=== PATIENT | male | born 1945 | race Hispanic/Latino ===

== ENCOUNTER 2019-01-18 11:38 | Inpatient (IN) | payer MEDICARE ==
[2019-01-18] MEDS ORDERED: CARDIZEM IV ONE ×2 (11:40→11:57)
--- NOTE | 2019-01-18 11:56 | Emergency Department Report ---
HPI - General Time Seen by Provider: 01/18/19 11:40 - HPI HPI: 73-year-old male presents to the emergency department via EMS from home with complaint of chest pain that started about 1.5 hours prior to presentation. The patient took a few of his own sublingual nitroglycerin with only a small amount of relief. EMS gave him a dose of aspirin at 325 mg. He was found to have a heart rate of about 160-180. EMS thought that the patient might have SVT and the patient was given adenosine at 6 g and then 12 mg, without any improvement of heart rate. By the time the patient was sent to the emergency department his chest pain has improved. Upon arrival, he does have a very fast heart rate but appears irregular and the patient appears to have new onset atrial fibrillation. He has a past medical history of coronary artery disease with previous IL and multiple stents as well as his bypass surgery. He is on Plavix. 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 He is a former smoker and denies any illicit drug use. ED Past Medical Hx - Past Medical History Hx Hypertension: Yes (FOR 12 YRS) Hx Heart Attack/AMI: Yes (02/2015) Hx Renal Disease: No Hx Seizures: No Hx HIV: No - Surgical History Hx Coronary Stent: Yes (X3 IN 2003, X2 IN 2006 & X2 IN 2014) Hx Open Heart Surgery: Yes (CABG ONE VESSEL 02/2015) - Social History Smoking Status: Former Smoker Substance Use Type: Alcohol - Medications Home Medications: Home Medications Medication Instructions Recorded Confirmed Last Taken Type Niacin [Niaspan] 500 mg PO DAILY 05/05/15 01/18/19 05/17/17 History Atenolol [Tenormin] 50 mg PO BID 01/18/19 01/18/19 Unknown History Atorvastatin [Lipitor Tab] 80 mg PO DAILY 01/18/19 01/18/19 Unknown History Cholecalciferol (Vitamin D3) 3,000 unit PO DAILY 01/18/19 01/18/19 Unknown History [Vitamin D3 3,000 unit] Clopidogrel Bisulfate [Plavix] 75 mg PO DAILY 01/18/19 01/18/19 Unknown History Duloxetine HCl [DULoxetine] 60 mg PO QDAY 01/18/19 01/18/19 Unknown History Ezetimibe [Zetia] 5 mg PO QDAY 01/18/19 01/18/19 Unknown History Loratadine [Claritin] 10 mg PO DAILY 01/18/19 01/18/19 Unknown History Losartan [Cozaar] 100 mg PO QDAY 01/18/19 01/18/19 Unknown History Tadalafil [Cialis] 5 mg PO QDAY 01/18/19 01/18/19 Unknown History hydroCHLOROthiazide [HCTZ] 25 mg PO QDAY 01/18/19 01/18/19 Unknown History ED Review of Systems ROS: Stated complaint: CHEST PAIN Other details as noted in HPI Comment: All other systems reviewed and negative Constitutional: denies: chills, fever Eyes: denies: eye pain, vision change ENT: denies: ear pain, throat pain Respiratory: denies: cough, shortness of breath Cardiovascular: chest pain, palpitations Gastrointestinal: denies: abdominal pain, vomiting Genitourinary: denies: dysuria, discharge Musculoskeletal: denies: back pain, arthralgia Skin: denies: rash, lesions Neurological: denies: headache, weakness Physical Exam - Physical Exam Vital Signs: Vital Signs 01/18/19 11:43 Pulse Rate 159 H Respiratory 18 Rate Blood Pressure 110/45 O2 Sat by Pulse 96 Oximetry Physical Exam: GENERAL: The patient is well-developed well-nourished. HEENT: Normocephalic. Atraumatic. Patient has moist mucous membranes. EYES: Extraocular motions are intact. Pupils are equal and reactive to light bilaterally. NECK: Supple. Trachea is midline. CHEST/LUNGS: Clear to auscultation. There is no respiratory distress noted. HEART/CARDIOVASCULAR: Irregular rhythm with severe tachycardia. ABDOMEN: Abdomen is soft, nontender. Patient has normal bowel sounds. There is no abdominal distention. SKIN: Skin is warm and dry. NEURO: The patient is awake, alert, and oriented. The patient is cooperative. The patient has no focal neurologic deficits. The patient has normal speech. MUSCULOSKELETAL: There is no tenderness or deformity. There is no evidence of acute injury. ED Course Vital Signs 01/18/19 11:43 Pulse Rate 159 H Respiratory 18 Rate Blood Pressure 110/45 O2 Sat by Pulse 96 Oximetry ED Medical Decision Making - Lab Data Result diagrams: 01/18/19 12:01 01/18/19 12:01 - EKG Data -: EKG Interpreted by Me - EKG Data When compared to previous EKG there are: changes noted (Previous EKG on 05/2017 was sinus arrythmia) Interpretation: other (atrial fibrillation with rate of 136 bpm, left axis deviation, LVH, Q waves inferior leads) - Radiology Data Radiology results: image reviewed interpreted by me: Chest x-ray does not show any pneumothorax, pleural effusion, pneumonia or obvious focal consolidation. - Medical Decision Making this patient presents to the emergency department with complaint of chest pain and he was found to have a very rapid heart rate. EMS thought the patient might be an SVT but he failed to have any improvement or convert with 6 mg and then 12 mg of adenosine. When he arrived to the emergency department, his pulse appeared and felt irregular. I had suspicion that this was atrial fibrillation. He was given 20 mg of Cardizem which did have some improvement in the heart rate in the EKG was done that confirmed new onset atrial fibrillation. After that, patient was given another dose of Cardizem and started on a Cardizem drip. Chest x-ray did not show any focal consolidation, pneumothorax, pleural effusions, pneumonia, or any other acute process. The patient bumped his first troponin at 0.133. This may have been demand ischemia secondary to the extreme tachycardia but his second troponin is also elevated. The patient was started on heparin. He will be admitted to the hospital for further evaluation and treatment and was accepted for admission by the hospitalist. - Differential Diagnosis IL, PE, dysrhythmia, pneumonia Critical Care Time: Yes Critical care time in (mins) excluding proc time.: 35 Critical care attestation.: If time is entered above; I have spent that time in minutes in the direct care of this critically ill patient, excluding procedure time. Critical care time was spent on this patient during his initial evaluation, multiple re- evaluations, ordering and interpretation of labs and imaging, discussion with the cardiology service, ordering and titration of Cardizem and heparin. Critical Care Time: 35 minutes ED Disposition Clinical Impression: New onset atrial fibrillation, Atrial fibrillation with RVR, Elevated troponin, Chest pain Disposition: OP ADMIT IP TO THIS HOSP Is pt being admited?: Yes Condition: Serious Time of Disposition: 18:49
[2019-01-18] MEDS ORDERED: NACL 0.9% 1000 ML 1,000 ML IV ONE (11:57)
--- NOTE | 2019-01-18 12:11 | XRay Report ---
AP CHEST: HISTORY: chest pain AP view of the chest demonstrates a normal mediastinal and cardiac contour with clear lungs and normal bony and soft tissue structures. IMPRESSION: No acute cardiopulmonary process.
[2019-01-18 12:19] LABS: Basophils # (Auto) 0.1 K/mm3 (0.0-0.1); Basophils % (Auto) 0.8 % (0.0-1.8); Eosinophils # (Auto) 0.1 K/mm3 (0.0-0.4); Eosinophils % (Auto) 0.7 % (0.0-4.3); Hemoglobin 13.6 gm/dl (11.8-15.2); Lymphocytes # (Auto) 1.4 K/mm3 (1.2-5.4); Lymphocytes % (Auto) 11.5 % (13.4-35.0); Mean Corpuscular HGB Conc 34 % (32-34); Mean Corpuscular Volume 95 fl (84-94); Monocytes # (Auto) 1.8 K/mm3 (0.0-0.8); Monocytes % (Auto) 14.7 % (0.0-7.3); Platelet Count 270 K/mm3 (140-440); Red Blood Count 4.21 M/mm3 (3.65-5.03); Red Cell Distribution Width 14.7 % (13.2-15.2)
[2019-01-18 12:27] LABS: INR 0.89 (0.87-1.13); Partial Thromboplastin Time 23.7 Sec. (24.2-36.6)
[2019-01-18] MEDS ORDERED: CARDIZEM/D5W 100MG/100ML 100 MG/100 ML BAG IV SCH (12:30)
[2019-01-18 12:42] LABS: Calcium 9.5 mg/dL (8.4-10.2)
[2019-01-18] MEDS ORDERED: HEPARIN 10,000 UNITS/10 ML IV ONE (12:48)
[2019-01-18] MEDS ORDERED: HEPARIN/ 0.45% NACL-25,000 UNIT/500 ML 25,000 UNIT/500 ML BAG IV SCH (13:00)
[2019-01-18] MEDS ORDERED: CARDIZEM 100 MG in D5W 80 ML IV SCH (13:00)
[2019-01-18 13:07] LABS: Chol/HDL Ratio 2.38 %
--- NOTE | 2019-01-18 13:10 | History and Physical Report ---
History of Present Illness Chief complaint: My chest hurts History of present illness: 73 YO Male with HTN, HI, CAD S/P Stent Placement, S/P CABG on DAPT, HLD, Carotid Stenosis S/P CEA, presents to ED for evaluation. Pt states that he has experienced pain in his chest over the past 12 hours with acutely worsening symp toms over the past 1.5 hours prior to presentation to [facility]. Pt states that pain is 7/10, constant, nonradiating, not worsened with exertion, not relieved with rest, relieved with nitro. Pt acknowledges decreased exercise tolerance, and shortness of breath, and palpitations. EMS notified, and uopn arrival the patient was thought to have SVT and treated with Adenosine without improvement. Pt seen and evaluated in ED and found to have Atrial Fib/Flutter and treated with Cardizem with mild but unsustained improvement in heart rate, as well as NSTEMI and clinical findings consistent with CHF. Pt switched to Amiodarone drip with bolus dosing as per cardiology request. Pt denies fever, chills, NVD, Trauma, BRBPR, Unintentional weight loss, night sweats, skin rash. Pt Admitted to [facility]. Cardiology consulted in ED. Past History Past Medical History: acute HI, CAD, hypertension, hyperlipidemia, other (Carotid Stenosis) Past Surgical History: CABG, Other (Cardiac stent placement. ) Social history: , lives with family Family history: CAD, hypertension Medications and Allergies Allergies Allergy/AdvReac Type Severity Reaction Status Date / Time No Known Allergies Allergy Verified 05/05/15 13:06 Home Medications Medication Instructions Recorded Confirmed Last Taken Type Niacin [Niaspan] 500 mg PO DAILY 05/05/15 01/18/19 05/17/17 History Atenolol [Tenormin] 50 mg PO BID 01/18/19 01/18/19 Unknown History Atorvastatin [Lipitor Tab] 80 mg PO DAILY 01/18/19 01/18/19 Unknown History Cholecalciferol (Vitamin D3) 3,000 unit PO DAILY 01/18/19 01/18/19 Unknown History [Vitamin D3 3,000 unit] Clopidogrel Bisulfate [Plavix] 75 mg PO DAILY 01/18/19 01/18/19 Unknown History Duloxetine HCl [DULoxetine] 60 mg PO QDAY 01/18/19 01/18/19 Unknown History Ezetimibe [Zetia] 5 mg PO QDAY 01/18/19 01/18/19 Unknown History Loratadine [Claritin] 10 mg PO DAILY 01/18/19 01/18/19 Unknown History Losartan [Cozaar] 100 mg PO QDAY 01/18/19 01/18/19 Unknown History Tadalafil [Cialis] 5 mg PO QDAY 01/18/19 01/18/19 Unknown History hydroCHLOROthiazide [HCTZ] 25 mg PO QDAY 01/18/19 01/18/19 Unknown History Active Meds: Active Medications Sodium Chloride (Nacl 0.9% 1000 Ml) 1,000 mls @ 250 mls/hr IV ONCE ONE Stop: 01/18/19 15:56 Last Admin: 01/18/19 12:06 Dose: 250 mls/hr Documented by: Diltiazem HCl 100 mg/ Dextrose 100 mls @ 5 mls/hr IV TITR NINA; Protocol Heparin Sodium/Sodium Chloride (Heparin/ 0.45% Nacl-25,000 Unit/500 Ml) 25,000 unit in 500 mls @ 24 mls/hr IV TITR NINA; Protocol Review of Systems Constitutional: no weight loss, no weight gain, no fever, no chills Ears, nose, mouth and throat: no ear pain, no ear discharge, no tinnitis, no decreased hearing, no nose pain Cardiovascular: chest pain, shortness of breath, dyspnea on exertion, decreased exercise tolerance Respiratory: no cough, no cough with sputum, no excessive sputum, no hemoptysis Gastrointestinal: no nausea, no vomiting, no diarrhea Genitourinary Male: no hematuria, no flank pain, no discharge, no urinary frequency, no urinary hesitancy Rectal: no pain, no incontinence, no bleeding Musculoskeletal: no neck stiffness, no neck pain, no shooting arm pain, no arm numbness/tingling, no low back pain Integumentary: no rash, no pruritis, no redness, no sores, no wounds Neurological: no transient paralysis, no paralysis, no weakness, no parathesias, no numbness, no tingling Psychiatric: no anxiety, no memory loss, no change in sleep habits, no sleep disturbances, no insomnia, no hypersomnia, no change in appetite Endocrine: no cold intolerance, no heat intolerance, no polyphagia, no excessive thirst, no polydipsia, no polyuria Hematologic/Lymphatic: no easy bruising, no easy bleeding, no lymphadenopathy, no lymphedema Allergic/Immunologic: no urticaria, no allergic rhinitis, no wheezing, no persistent infections, no anaphylaxis, no angioedema Exam - Constitutional Vitals: Temp Pulse Resp BP Pulse Ox 99 F 128 H 24 117/57 97 01/18/19 12:21 01/18/19 12:16 01/18/19 12:16 01/18/19 12:21 01/18/19 12:16 General appearance: Present: mild distress - EENT Eyes: Present: PERRL ENT: hearing intact, clear oral mucosa - Neck Neck: Present: supple, normal ROM - Respiratory Respiratory effort: normal Respiratory: bilateral: CTA - Cardiovascular Heart Sounds: Present: S1 & S2. Absent: rub, click - Extremities Extremities: pulses symmetrical, No edema Peripheral Pulses: within normal limits - Abdominal General gastrointestinal: Present: soft, non-tender, non-distended, normal bowel sounds Male genitourinary: Present: normal - Integumentary Integumentary: Present: clear, warm, dry - Musculoskeletal Musculoskeletal: gait normal, strength equal bilaterally - Psychiatric Psychiatric: appropriate mood/affect, intact judgment & insight - Neurologic Neurologic: CNII-XII intact, moves all extremities Results - Labs CBC & Chem 7: 01/18/19 12:01 01/18/19 12:01 Labs: Abnormal lab results 01/18/19 01/18/19 01/18/19 Range/Units 12:01 12:01 12:01 WBC 12.4 H (4.5-11.0) K/mm3 MCV 95 H (84-94) fl Lymph % (Auto) 11.5 L (13.4-35.0) % Hill % (Auto) 14.7 H (0.0-7.3) % Hill # 1.8 H (0.0-0.8) K/mm3 Seg Neutrophils % 72.3 H (40.0-70.0) % Seg Neutrophils # 9.0 H (1.8-7.7) K/mm3 APTT 23.7 L (24.2-36.6) Sec. Sodium 134 L (137-145) mmol/L Chloride 94.7 L (98-107) mmol/L Glucose 130 H (75-100) mg/dL Troponin T 0.133 H* (0.00-0.029) ng/mL HDL Cholesterol 70 H (40-59) mg/dL Assessment and Plan - Patient Problems (1) NSTEMI (non-ST elevated myocardial infarction) Current Visit: Yes Status: Acute Plan to address problem: Heparin drip, cardiology consulted in ED, Pt admitted to IMCU (2) CHF (congestive heart failure) Current Visit: Yes Status: Suspected Qualifiers: Heart failure type: diastolic Heart failure chronicity: acute Qualified Code(s): I50.31 - Acute diastolic (congestive) heart failure Plan to address problem: Admit to IMCU, Echo, cardiology consulted in ED, strict I/O, daily weight, monitor uop q shift, bnp, chest x ray, blood pressure control, afterload reduction. (3) CAD (coronary artery disease) Current Visit: Yes Status: Acute Qualifiers: Coronary Disease-Associated Artery/Lesion type: [place] artery Associated angina: with stable angina Plan to address problem: Admit to IMCU, DAPT, statin therapy, risk factor reduction therapy. (4) HLD (hyperlipidemia) Current Visit: Yes Status: Acute Plan to address problem: Lipid panel, statin therapy, (5) Atrial fibrillation with RVR Current Visit: Yes Status: Acute Plan to address problem: Pt admitted to IMCU, Amiodarone drip, cardiology consulted in ED, supportive care, monitor heart rate with goal between 80-100 beats per minute. (6) DVT prophylaxis Current Visit: Yes Status: Acute Plan to address problem: SCD to BLE while in bed.
[2019-01-18] MEDS ORDERED: SODIUM CHLORIDE FLUSH SYRINGE 10 ML IV PRN ×2 (13:11→13:12)
[2019-01-18] MEDS ORDERED: BABY ASPIRIN PO STA (13:11)
[2019-01-18] MEDS ORDERED: NITROSTAT SL PRN (13:11)
[2019-01-18] MEDS ORDERED: ZOFRAN IV PRN (13:12)
[2019-01-18] MEDS ORDERED: TYLENOL PO PRN (13:12)
--- NOTE | 2019-01-18 13:26 | Consultation ---
History of Present Illness Consult date: 01/18/19 Requesting physician: LORA RENO Consult reason: atrial fibrillation History of present illness: The patient is a 73 year old male who is followed by Dr. Dhaliwal in the office with a history of CAD s/p PCI and robotic CABG (2014), hypertension, hyperlipidemia, carotid stenosis s/p right carotid endarterectomy, former tobacco use, ETOH use (drinks ~8oz whiskey daily), renal insufficiency. He presented with complaints of chest pain, palpitations and rapid HR since this AM. His symptoms started suddenly approx 1.5 hours prior to presentation. The patient took a few of his own sublingual nitroglycerin with only a small amount of relief. EMS gave him a dose of aspirin at 325 mg. He was found to have a heart rate of about 160-180. EMS thought that the patient might have SVT and the patient was given adenosine at 6 g and then 12 mg, without any improvement of heart rate. Upon arrival, pt noted to be in AFib with RVR. No known prior diagnosis of AFib. He was given IV cardizem bolus and initiated on cardizem gtt. On evaluation, HR remains 130s - 160s, SBP 100s. In 02/2015 he underwent robotic HERNANDEZ to LAD and PCI of proximal RCA. Echo done 10/2018 showed EF 50%, mod LVH, impaired relaxation, trace MR. Pharmacologic MPI stress test done 10/2018 showed mod to large minimally reversible predominantly fixed inferolateral defect of moderate severity, EF 58%. Past History Past Medical History: CAD, hypertension, hyperlipidemia Past Surgical History: CABG, Other (back surgery) Social history: , lives with family, smoking (former), alcohol abuse (drinks 8oz whiskey daily) Medications and Allergies Allergies Allergy/AdvReac Type Severity Reaction Status Date / Time No Known Allergies Allergy Verified 05/05/15 13:06 Home Medications Medication Instructions Recorded Confirmed Last Taken Type Niacin [Niaspan] 500 mg PO DAILY 05/05/15 01/18/19 05/17/17 History Atenolol [Tenormin] 50 mg PO BID 01/18/19 01/18/19 Unknown History Atorvastatin [Lipitor Tab] 80 mg PO DAILY 01/18/19 01/18/19 Unknown History Cholecalciferol (Vitamin D3) 3,000 unit PO DAILY 01/18/19 01/18/19 Unknown History [Vitamin D3 3,000 unit] Clopidogrel Bisulfate [Plavix] 75 mg PO DAILY 01/18/19 01/18/19 Unknown History Duloxetine HCl [DULoxetine] 60 mg PO QDAY 01/18/19 01/18/19 Unknown History Ezetimibe [Zetia] 5 mg PO QDAY 01/18/19 01/18/19 Unknown History Loratadine [Claritin] 10 mg PO DAILY 01/18/19 01/18/19 Unknown History Losartan [Cozaar] 100 mg PO QDAY 01/18/19 01/18/19 Unknown History Tadalafil [Cialis] 5 mg PO QDAY 01/18/19 01/18/19 Unknown History hydroCHLOROthiazide [HCTZ] 25 mg PO QDAY 01/18/19 01/18/19 Unknown History Active Meds: Active Medications Acetaminophen (Tylenol) 650 mg PO Q4H PRN PRN Reason: Pain MILD(1-3)/Fever >100.5/AGOSTO Aspirin (Baby Aspirin) 324 mg PO ONCE STA Stop: 01/18/19 13:12 Atenolol (Tenormin) 50 mg PO BID NINA Clopidogrel Bisulfate (Plavix) 75 mg PO DAILY NINA Ezetimibe (Zetia) 5 mg PO QDAY NINA Hydrochlorothiazide (Hctz) 25 mg PO QDAY NINA Sodium Chloride (Nacl 0.9% 1000 Ml) 1,000 mls @ 250 mls/hr IV ONCE ONE Stop: 01/18/19 15:56 Last Admin: 01/18/19 12:06 Dose: 250 mls/hr Documented by: Diltiazem HCl 100 mg/ Dextrose 100 mls @ 5 mls/hr IV TITR NINA; Protocol Last Admin: 01/18/19 13:13 Dose: 5 mg/hr, 5 mls/hr Documented by: Heparin Sodium/Sodium Chloride (Heparin/ 0.45% Nacl-25,000 Unit/500 Ml) 25,000 unit in 500 mls @ 24 mls/hr IV TITR NINA; Protocol Loratadine (Claritin) 10 mg PO DAILY NINA Miscellaneous Medication (Atorvastatin [Lipitor]) 80 mg PO DAILY NINA Miscellaneous Medication (Cholecalciferol (Vitamin D3) [Vitamin D3 3,000 Unit]) 3,000 unit PO DAILY NINA Miscellaneous Medication (Duloxetine Hcl [Duloxetine]) 60 mg PO QDAY [facility] Miscellaneous Medication (Losartan [Cozaar]) 100 mg PO QDAY [facility] Miscellaneous Medication (Tadalafil [Cialis]) 5 mg PO QDAY [facility] Niacin (Niaspan Er) 500 mg PO DAILY [facility] Nitroglycerin (Nitrostat) 0.4 mg SL Q5M PRN PRN Reason: Chest Pain Ondansetron HCl (Zofran) 4 mg IV Q8H PRN PRN Reason: Nausea And Vomiting Sodium Chloride (Sodium Chloride Flush Syringe 10 Ml) 10 ml IV PRN PRN PRN Reason: LINE FLUSH Sodium Chloride (Sodium Chloride Flush Syringe 10 Ml) 10 ml IV BID NINA Sodium Chloride (Sodium Chloride Flush Syringe 10 Ml) 10 ml IV PRN PRN PRN Reason: LINE FLUSH Review of Systems Constitutional: no weight loss, no weight gain, no fever, no chills, no sweats Ears, nose, mouth and throat: nasal congestion, no ear pain, no nose pain, no sinus pressure, no sinus pain Cardiovascular: chest pain, palpitations, rapid/irregular heart beat, no orthopnea, no edema, no syncope, no lightheadedness, no shortness of breath, no dyspnea on exertion, no paroxysmal nocturnal dyspnea, no leg edema Respiratory: no cough, no shortness of breath, no dyspnea on exertion, no congestion, no wheezing, no pain on inspiration Gastrointestinal: no abdominal pain, no nausea, no vomiting, no diarrhea, no constipation, no change in bowel habits Genitourinary Male: no dysuria, no hematuria, no flank pain, no discharge, no urinary frequency, no urinary hesitancy Musculoskeletal: no neck stiffness, no neck pain, no shooting arm pain, no arm numbness/tingling, no low back pain, no shooting leg pain Integumentary: no rash, no pruritis, no redness, no sores, no wounds Neurological: no head injury, no paralysis, no weakness, no parathesias, no numbness, no tingling, no seizures, no syncope Psychiatric: no anxiety Endocrine: no cold intolerance, no heat intolerance Hematologic/Lymphatic: no easy bruising, no easy bleeding Allergic/Immunologic: no urticaria, no wheezing Physical Examination Vital Signs Resp 13 01/18/19 11:41 General appearance: no acute distress HEENT: Positive: PERRL, Normocephaly, Mucus Membranes Moist Neck: Positive: neck supple, trachea midline Cardiac: Positive: irregularly irregular, S1/S2, Tachycardia Lungs: Positive: clear to auscultation Neuro: Positive: Grossly Intact Abdomen: Positive: Soft. Negative: Tender Skin: Positive: Clear. Negative: Rash, Wound Musculoskeletal: No Pain Extremities: Absent: edema Results 01/18/19 12:01 01/18/19 12:01 Coagulation 01/18/19 Range/Units 12:01 PT 12.6 (12.2-14.9) Sec. INR 0.89 (0.87-1.13) APTT 23.7 L (24.2-36.6) Sec. Lipids 01/18/19 Range/Units 12:01 Triglycerides 120 (2-149) mg/dL Cholesterol 167 (50-199) mg/dL HDL Cholesterol 70 H (40-59) mg/dL Cholesterol/HDL Ratio 2.38 % CBC 01/18/19 Range/Units 12:01 WBC 12.4 H (4.5-11.0) K/mm3 RBC 4.21 (3.65-5.03) M/mm3 Hgb 13.6 (11.8-15.2) gm/dl Hct 40.0 (35.5-45.6) % Plt Count 270 (140-440) K/mm3 Lymph # 1.4 (1.2-5.4) K/mm3 [place] # 1.8 H (0.0-0.8) K/mm3 Eos # 0.1 (0.0-0.4) K/mm3 Baso # 0.1 (0.0-0.1) K/mm3 Comprehensive Metabolic Panel 01/18/19 Range/Units 12:01 Sodium 134 L (137-145) mmol/L Potassium 4.4 (3.6-5.0) mmol/L Chloride 94.7 L (98-107) mmol/L Carbon Dioxide 24 (22-30) mmol/L BUN 9 (9-20) mg/dL Creatinine 1.3 (0.8-1.5) mg/dL Glucose 130 H (75-100) mg/dL Calcium 9.5 (8.4-10.2) mg/dL - Imaging and Cardiology Echo: report reviewed ( 10/2018 showed EF 50%, mod LVH, impaired relaxation, trace MR. ) EKG: report reviewed, image reviewed EKG interpretations - Telemetry EKG Rhythm: Atrial Fibrillation - EKG Supraventricular dysrhythmia: atrial fibrillation Assessment and Plan Pt remains in AFib RVR with HR 130s - 160s on IV cardizem, SBPs 100s. Will convert to IV amio. D/c home atenolol and convert to lopressor, titrate as BPs permit. F/u serum Mg and LFTs. Echo done 10/2018 showed EF 50%, mod LVH, impaired relaxation, trace MR. Pharmacologic MPI stress test done 10/2018 showed mod to large minimally reversible predominantly fixed inferolateral defect of moderate severity, EF 58%. Agree with heparin gtt at this time and consider conversion to OAC prior to hospital discharge. Suspect trop elevation secondary to NSTEMI type II. ECG no acute ischemic changes. Cont to trend Nicole and repeat ECG in AM. Pt reports resolution of chest pain at this time. The patient has been seen in conjunction with Dr. Sharif who agrees with the assessment and plan of care. - Patient Problems (1) Atrial fibrillation with RVR Current Visit: Yes Status: Acute (2) Chest pain Current Visit: Yes Status: Acute (3) Elevated troponin Current Visit: Yes Status: Acute (4) CAD (coronary artery disease) Current Visit: Yes Status: Chronic (5) Hx of CABG Current Visit: Yes Status: Chronic (6) Stented coronary artery Current Visit: Yes Status: Chronic (7) HTN (hypertension) Current Visit: Yes Status: Chronic (8) Hyperlipidemia Current Visit: Yes Status: Chronic (9) EtOH dependence Current Visit: Yes Status: Chronic (10) History of right-sided carotid endarterectomy Current Visit: Yes Status: Chronic
[2019-01-18] MEDS ORDERED: CORDARONE 900 MG in D5W 482 ML IV SCH (14:00)
[2019-01-18] MEDS ORDERED: CORDARONE 150 MG in D5W 97 ML IV ONE (14:00)
[2019-01-18 14:34] LABS: Alanine Aminotransferase 17 units/L (7-56); Albumin 3.8 g/dL (3.9-5); Bilirubin,Direct < 0.2 mg/dL (0-0.2)
[2019-01-18] MEDS ORDERED: MAGNESIUM SULFATE 2GM/50ML 2 GM/50 ML BAG IV ONE ×2 (15:54→19:25)
--- NOTE | 2019-01-18 18:24 | Event Note ---
Date: 01/18/19 Patient seen in IM. at bedside. Patient converted to SR. BP 120/78. Patient wanted to to know why he had AF. Answer. Alcohol abuse and Low mag (1.4 mg%) Had hypo natremia last year again due to alcohol. To limit to one or two drinks of alcohol if at all he wants to take. . 6;30 PM.
[2019-01-18] MEDS ORDERED: TENORMIN PO SCH (22:00)
[2019-01-18] MEDS ORDERED: BENADRYL PO PRN (22:36)
[2019-01-18] MEDS: LOPRESSOR PO SCH (22:39)
[2019-01-18] MEDS: SODIUM CHLORIDE FLUSH SYRINGE 10 ML IV SCH (22:40)
[2019-01-19 05:04] LABS: BUN/Creatinine Ratio 12; Blood Urea Nitrogen 13 mg/dL (9-20); Calcium 8.4 mg/dL (8.4-10.2); Hemolysis Index 160
[2019-01-19] MEDS ORDERED: NACL 0.9% 1000 ML 1,000 ML ONE (07:53)
[2019-01-19] MEDS ORDERED: ZETIA PO SCH (10:00)
[2019-01-19] MEDS ORDERED: COZAAR PO SCH (10:00)
[2019-01-19] MEDS ORDERED: TADALAFIL 5 MG PO SCH (10:00)
[2019-01-19] MEDS ORDERED: CHOLECALCIFEROL 3000 UNIT PO SCH (10:00)
[2019-01-19] MEDS ORDERED: CYMBALTA PO SCH (10:00)
[2019-01-19] MEDS ORDERED: VITAMIN D3 PO SCH (10:00)
[2019-01-19] MEDS ORDERED: NON-FORMULARY (Losartan [Cozaar] 100 MG) PO SCH (10:00)
[2019-01-19] MEDS ORDERED: HCTZ PO SCH (10:00)
[2019-01-19] MEDS ORDERED: SODIUM CHLORIDE PO SCH (10:00)
[2019-01-19] MEDS ORDERED: NON-FORMULARY (Atorvastatin [Lipitor] 80 MG) PO SCH (10:00)
[2019-01-19] MEDS ORDERED: CLARITIN PO SCH (10:00)
[2019-01-19] MEDS ORDERED: PLAVIX PO SCH (10:00)
[2019-01-19] MEDS ORDERED: NIASPAN ER PO SCH (10:00)
[2019-01-19] MEDS ORDERED: NON-FORMULARY (Duloxetine Hcl [Duloxetine] 60 MG) PO SCH (10:00)
[2019-01-19] MEDS: LOPRESSOR PO SCH (10:55)
[2019-01-19] MEDS: SODIUM CHLORIDE FLUSH SYRINGE 10 ML IV SCH (11:02)
--- NOTE | 2019-01-19 11:45 | Progress Note ---
Assessment and Plan Pt has converted ton NSR. D/c amio gtt and heparin gtt. 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 Currently stable cardiac status. Pt may discharge home from cardiology standpoint. At discharge, recommend discontinuation of home atenolol and initiation of Toprol XL 50mg daily. Cont all other home cardiac medications. Cessation of ETOH use strongly encouraged. Pt verbalizes understanding. Follow up in our [place] office with Dr. Dhaliwal on 02/02/2019 @ 3:15PM. The patient has been seen in conjunction with Dr. Sharif who agrees with the assessment and plan of care. - Patient Problems (1) Atrial fibrillation with RVR Current Visit: Yes Status: Acute (2) Chest pain Current Visit: Yes Status: Acute (3) Elevated troponin Current Visit: Yes Status: Acute (4) CAD (coronary artery disease) Current Visit: Yes Status: Chronic (5) Hx of CABG Current Visit: Yes Status: Chronic (6) Stented coronary artery Current Visit: Yes Status: Chronic (7) HTN (hypertension) Current Visit: Yes Status: Chronic (8) Hyperlipidemia Current Visit: Yes Status: Chronic (9) EtOH dependence Current Visit: Yes Status: Chronic (10) History of right-sided carotid endarterectomy Current Visit: Yes Status: Chronic (11) Hypomagnesemia Current Visit: Yes Status: Acute Subjective Date of service: 01/19/19 Principal diagnosis: AFib RVR Interval history: pt resting in bed, no current complaints. converted to SR yesterday evening and remains in SR. amio gtt and heparin gtt infusing. Objective Last Vital Signs Temp 97.5 F L 01/19/19 08:00 Pulse 84 01/19/19 10:55 Resp 21 01/19/19 06:00 BP 134/74 01/19/19 10:55 Pulse Ox 92 01/19/19 06:00 - Physical Examination General: No Apparent Distress HEENT: Positive: PERRL, Normocephaly, Mucus Membranes Moist Neck: Positive: neck supple, trachea midline Cardiac: Positive: Reg Rate and Rhythm, S1/S2 Lungs: Positive: Decreased Breath Sounds Neuro: Positive: Grossly Intact Abdomen: Positive: Soft. Negative: Tender Skin: Positive: Clear. Negative: Rash, Wound Musculoskeletal: No Pain Extremities: Absent: edema - Labs and Meds Cardiac Enzymes 01/18/19 Range/Units 12: AST 34 (5-40) units/L Coagulation 01/18/19 01/18/19 Range/Units 12: 22:49 PT 12.6 (12.2-14.9) Sec. INR 0.89 (0.87-1.13) APTT 23.7 L 71.7 H* (24.2-36.6) Sec. Lipids 01/18/19 Range/Units 12: Triglycerides 120 (2-149) mg/dL Cholesterol 167 (50-199) mg/dL HDL Cholesterol 70 H (40-59) mg/dL Cholesterol/HDL Ratio 2.38 % CBC 01/18/19 Range/Units 12:01 WBC 12.4 H (4.5-11.0) K/mm3 RBC 4.21 (3.65-5.03) M/mm3 Hgb 13.6 (11.8-15.2) gm/dl Hct 40.0 (35.5-45.6) % Plt Count 270 (140-440) K/mm3 Lymph # 1.4 (1.2-5.4) K/mm3 [place] # 1.8 H (0.0-0.8) K/mm3 Eos # 0.1 (0.0-0.4) K/mm3 Baso # 0.1 (0.0-0.1) K/mm3 Comprehensive Metabolic Panel 01/18/19 01/18/19 01/19/19 Range/Units 12:01 12:01 03:25 Sodium 134 L 128 L (137-145) mmol/L Potassium 4.4 4.1 (3.6-5.0) mmol/L Chloride 94.7 L 96.6 L (98-107) mmol/L Carbon Dioxide 24 17 L D (22-30) mmol/L BUN 9 13 (9-20) mg/dL Creatinine 1.3 1.1 (0.8-1.5) mg/dL Glucose 130 H 102 H (75-100) mg/dL Calcium 9.5 8.4 (8.4-10.2) mg/dL Direct Bilirubin < 0.2 (0-0.2) mg/dL AST 34 (5-40) units/L ALT 17 (7-56) units/L Alkaline Phosphatase 67 (35-129) units/L Total Protein 6.6 (6.3-8.2) g/dL Albumin 3.8 L (3.9-5) g/dL - Imaging and Cardiology EKG: report reviewed, image reviewed Echo: report reviewed ( 10/2018 showed EF 50%, mod LVH, impaired relaxation, trace MR. )
[2019-01-19] MEDS ORDERED: BABY ASPIRIN PO SCH (12:00)
[2019-01-19 12:23] VITALS: BP 148/71
--- NOTE | 2019-01-19 12:33 | Discharge Summary ---
Providers - Providers Date of Admission: 01/18/19 13:12 Attending physician: DRE HATCH MD 01/18/19 Consult to Cardiac Rehabilitation [CONS] Routine Reason For Exam: Phase I 01/18/19 13:11 Consult to Cardiology [CONS] Routine Consulting Provider: DI GARCÍA Reason For Exam: NSTEMI/CHF Primary care physician: PROFESSOR OF PRACTICE Hospitalization Reason for admission: chest pain Condition: Serious Hospital course: 73 YO Male with HTN, OK, CAD S/P Stent Placement, S/P CABG on DAPT, HLD, Carotid Stenosis S/P CEA, presents to ED for evaluation. Pt states that he has experienced pain in his chest over the past 12 hours with acutely worsening symptoms over the past 1.5 hours prior to presentation to [facility]. Pt states that pain is 7/10, constant, nonradiating, not worsened with exertion, not relieved with rest, relieved with nitro. Pt acknowledges decreased exercise tolerance, and shortness of breath, and palpitations. EMS notified, and uopn arrival the patient was thought to have SVT and treated with Adenosine without improvement. Pt seen and evaluated in ED and found to have Atrial Fib/Flutter and treated with Cardizem with mild but unsustained improvement in heart rate, as well as NSTEMI and clinical findings consistent with CHF. Pt switched to Amiodarone drip with bolus dosing as per cardiology request. Pt denies fever, chills, NVD, Trauma, BRBPR, Unintentional weight loss, night sweats, skin rash. Pt Admitted to IMCU. Cardiology consulted in ED. cardiology saw the patient and per their documentation \ Pt has converted ton NSR. D/c amio gtt and heparin gtt. No current indication for terminal carman systemic AC due to brief duration of AFib (<24Hr). Currently stable cardiac status. Pt may discharge home from cardiology standpoint. At discharge, recommend discontinuation of home atenolol and initiation of Toprol XL 50mg daily. Cont all other home cardiac medications. Cessation of ETOH use strongly encouraged. Pt verbalizes understanding. Follow up in our [place] office with Dr. Dhaliwal on 02/02/2019 @ 3:15PM. (1) Atrial fibrillation with RVR Current Visit: Yes Status: Acute (2)Atypical Chest pain SECONDARY TO COSTOCHONDRITIS Current Visit: Yes Status: Acute (3) NSTEMI TYPE 2 Current Visit: Yes Status: Acute (4) CAD (coronary artery disease) Current Visit: Yes Status: Chronic (5) Hx of CABG Current Visit: Yes Status: Chronic (6) Stented coronary artery Current Visit: Yes Status: Chronic (7) HTN (hypertension) Current Visit: Yes Status: Chronic (8) Hyperlipidemia Current Visit: Yes Status: Chronic (9) EtOH dependence Current Visit: Yes Status: Chronic (10) History of right-sided carotid endarterectomy Current Visit: Yes Status: Chronic (11) Hypomagnesemia Current Visit: Yes Status: Acute Disposition: DC-01 TO HOME OR SELFCARE Core Measure Documentation - Palliative Care Palliative Care/ Comfort Measures: Not Applicable - Core Measures Any of the following diagnoses?: none Exam - Physical Exam Narrative exam: General: No Apparent Distress, RESTING COMFORTABLY HEENT: Positive: PERRL, Normocephaly, Mucus Membranes Moist Neck: Positive: neck supple, trachea midline Cardiac: Positive: Reg Rate and Rhythm, S1/S2 Lungs: Positive: Decreased Breath Sounds Neuro: Positive: Grossly Intact Abdomen: Positive: Soft. Negative: Tender Skin: Positive: Clear. Negative: Rash, Wound Musculoskeletal: No Pain Extremities: Absent: edema - Constitutional Vitals: Temp Pulse Resp BP Pulse Ox 99.2 F 74 22 148/71 98 01/19/19 12:00 01/19/19 12:00 01/19/19 12:00 01/19/19 12:00 01/19/19 12:00 Plan Activity: advance as tolerated Diet: low fat Special Instructions: record daily weights Additional Instructions: Dr. Dhaliwal on 02/02/2019 @ 3:15PM. Follow up with: CHETAN NARVAEZ MD [Primary Care Provider] - 7 Days DONNA DHALIWAL MD [Staff Physician] - 02/02/19 3:15 pm Prescriptions: Metoprolol Succinate [Toprol Xl] 50 mg PO DAILY #30 tab.er.24h
== END 2019-01-19 13:19 | disposition home or self-care (01) | DRG 280 ==
LOC: ED 11:38 → IMCU 13:12
PROVIDERS: ADMIT Internal Medicine; ATTEND Internal Medicine
DX: I21.4 Non-ST elevation (NSTEMI) myocardial infarction (principal); I50.31 Acute diastolic (congestive) heart failure; I48.92 Unspecified atrial flutter; I48.91 Unspecified atrial fibrillation; I25.10 Atherosclerotic heart disease of native coronary artery without angina pectoris; E78.5 Hyperlipidemia, unspecified; F10.20 Alcohol dependence, uncomplicated; E83.42 Hypomagnesemia; I11.0 Hypertensive heart disease with heart failure; Z71.41 Alcohol abuse counseling and surveillance of alcoholic; Z79.899 Other long term (current) drug therapy; Z95.1 Presence of aortocoronary bypass graft; Z95.5 Presence of coronary angioplasty implant and graft; I25.2 Old myocardial infarction; Z82.49 Family history of ischemic heart disease and other diseases of the circulatory system
CPT/HCPCS: 36415; 71045; 80048; 80061; 80076; 83735; 84443; 84484; 85025; 85379; 85520; 85610; 85730; 93005; 93010; 96361; 96365; 96375; 96376; G0378; A9270-GY; J0282; J1644; J3475; J7030; J7050; J7060

== ENCOUNTER 2019-09-28 10:24 | Inpatient (IN) | payer MEDICARE ==
--- NOTE | 2019-09-28 11:05 | Emergency Department Report ---
ED General Adult HPI - General Chief complaint: Arrhythmia/Palpitations Stated complaint: RAPID HEART RATE Time Seen by Provider: 09/28/19 10:58 Source: patient, EMS Mode of arrival: Stretcher Limitations: No Limitations - History of Present Illness Initial comments: 74 YO MALE COMES TO ER VIA AM AFTER BEING AWAKENED AT 0400 WITH PALPITATIONS AND NAUSEA. HE REPORTS THAT HE WAS TO SEE CARDIOLOGY TODAY IN THE OFFICE FOR THIS SAME ISSUE. HE DENIES CP OR SOB. HE APPEARS FRAIL AND WEAK. HR PER EMS TO 160 BPM. NO FEVER/CHILLS/ABD PAIN/BACK PAIN/CP/SOB ALLERGIES NONE PCP LUCHO JUAREZ WHO IS IN [place] VISITING FAMILY STEP SON IS HERE WITH PT PMH CAD/CABG/STENT HTN OBESE DYSLIPIDEMIA PREVIOUS SMOKER- QUIT 20 Y AGO RX METOP ER 50 BID NIACIN ZETIA LOSARTAN DULOVETINE HCTZ CRESTOR PLAVIX PSH BACK 2012 AND 2017 CABG [address] MILLIGAN -: Sudden, minutes(s) Associated Symptoms: cough, nausea/vomiting Treatments Prior to Arrival: none - Related Data Home Medications Medication Instructions Recorded Confirmed Last Taken Niacin [Niaspan] 500 mg PO DAILY 05/05/15 01/18/19 05/17/17 Atorvastatin [Lipitor] 80 mg PO DAILY 01/18/19 01/18/19 Unknown Cholecalciferol (Vitamin D3) 3,000 unit PO DAILY 01/18/19 01/18/19 Unknown [Vitamin D3 3,000 unit] Clopidogrel Bisulfate [Plavix] 75 mg PO DAILY 01/18/19 01/18/19 Unknown Duloxetine HCl [DULoxetine] 60 mg PO QDAY 01/18/19 01/18/19 Unknown Ezetimibe [Zetia] 5 mg PO QDAY 01/18/19 01/18/19 Unknown Loratadine [Claritin] 10 mg PO DAILY 01/18/19 01/18/19 Unknown Losartan [Cozaar] 100 mg PO QDAY 01/18/19 01/18/19 Unknown Tadalafil [Cialis] 5 mg PO QDAY 01/18/19 01/18/19 Unknown hydroCHLOROthiazide [HCTZ] 25 mg PO QDAY 01/18/19 01/18/19 Unknown Previous Rx's Medication Instructions Recorded Last Taken Type Metoprolol Succinate [Toprol Xl] 50 mg PO DAILY #30 tab.er.24h 01/19/19 Unknown Rx Allergies Allergy/AdvReac Type Severity Reaction Status Date / Time No Known Allergies Allergy Verified 05/05/15 13:06 ED Review of Systems ROS: Stated complaint: RAPID HEART RATE Other details as noted in HPI Comment: All other systems reviewed and negative ED Past Medical Hx - Past Medical History Previous Medical History?: Yes Hx Hypertension: Yes (FOR 12 YRS) Hx CVA: No Hx Heart Attack/AMI: Yes (02/2015) Hx Diabetes: No Hx Deep Vein Thrombosis: No Hx Pulmonary Embolism: No Hx GERD: No Hx Liver Disease: No Hx Renal Disease: No Hx of Cancer: No Hx Sickle Cell Disease: No Hx Arthritis: No Hx Headaches / Migraines: No Hx Seizures: No Hx Kidney Stones: No Hx Psychiatric Treatment: No Hx Asthma: No Hx COPD: No Hx Tuberculosis: No Hx Dementia: No Hx HIV: No - Surgical History Past Surgical History?: Yes Hx Coronary Stent: Yes (X3 IN 2003, X2 IN 2006 & X2 IN 2014) Hx Open Heart Surgery: Yes (CABG ONE VESSEL 02/2015) Additional Surgical History: Left elbow, back - Family History Family history: no significant - Social History Smoking Status: Former Smoker Substance Use Type: Alcohol - Medications Home Medications: Home Medications Medication Instructions Recorded Confirmed Last Taken Type Niacin [Niaspan] 500 mg PO DAILY 05/05/15 01/18/19 05/17/17 History Atorvastatin [Lipitor] 80 mg PO DAILY 01/18/19 01/18/19 Unknown History Cholecalciferol (Vitamin D3) 3,000 unit PO DAILY 01/18/19 01/18/19 Unknown History [Vitamin D3 3,000 unit] Clopidogrel Bisulfate [Plavix] 75 mg PO DAILY 01/18/19 01/18/19 Unknown History Duloxetine HCl [DULoxetine] 60 mg PO QDAY 01/18/19 01/18/19 Unknown History Ezetimibe [Zetia] 5 mg PO QDAY 01/18/19 01/18/19 Unknown History Loratadine [Claritin] 10 mg PO DAILY 01/18/19 01/18/19 Unknown History Losartan [Cozaar] 100 mg PO QDAY 01/18/19 01/18/19 Unknown History Tadalafil [Cialis] 5 mg PO QDAY 01/18/19 01/18/19 Unknown History hydroCHLOROthiazide [HCTZ] 25 mg PO QDAY 01/18/19 01/18/19 Unknown History Metoprolol Succinate [Toprol Xl] 50 mg PO DAILY #30 tab.er.24h 01/19/19 Unknown Rx ED Physical Exam - General Limitations: No Limitations General appearance: alert - Head Head exam: Present: atraumatic, normocephalic - Eye Eye exam: Present: normal appearance - ENT ENT exam: Present: mucous membranes moist - Neck Neck exam: Present: normal inspection - Respiratory Respiratory exam: Present: normal lung sounds bilaterally. Absent: respiratory distress - Cardiovascular Cardiovascular Exam: Present: regular rate, normal rhythm. Absent: systolic murmur, diastolic murmur, rubs, gallop - GI/Abdominal GI/Abdominal exam: Present: soft, normal bowel sounds - Rectal Rectal exam: Present: deferred - Extremities Exam Extremities exam: Present: normal inspection - Back Exam Back exam: Present: normal inspection - Neurological Exam Neurological exam: Present: alert, oriented X3 - Psychiatric Psychiatric exam: Present: normal affect, normal mood - Skin Skin exam: Present: warm, dry, intact, normal color. Absent: rash ED Course Vital Signs 09/28/19 09/28/19 09/28/19 11:12 11:16 11:22 Pulse Rate 147 H 124 H Respiratory 27 H 21 21 Rate Blood Pressure O2 Sat by Pulse 96 95 95 Oximetry 09/28/19 09/28/19 09/28/19 11:30 11:45 12:00 Pulse Rate 117 H 116 H 131 H Respiratory 17 23 32 H Rate Blood Pressure 132/63 141/71 140/72 O2 Sat by Pulse 96 96 90 Oximetry 09/28/19 09/28/19 09/28/19 12:15 12:30 12:45 Pulse Rate 112 H 115 H 109 H Respiratory 22 24 22 Rate Blood Pressure 143/67 144/62 147/70 O2 Sat by Pulse 97 95 96 Oximetry - Reevaluation(s) Reevaluation #1: 09/28/19 11:50 ST 110 BPM AMIO DRIP IS INFUSING AT 1MG/M 1230 ST 100-110 SBP 130 ED Medical Decision Making - Lab Data Result diagrams: 09/28/19 11:31 09/28/19 11:31 - EKG Data Rate: tachycardia - EKG Data Interpretation: nonspecific ST-T wave radha - Radiology Data Radiology results: report reviewed, image reviewed - Medical Decision Making HX OF SAME- BEING WORKED UP BY DR MILLIGAN, CARDS FOR THE SAME ISSUE IN PAST HAD AFIB AND WAS CONVERTED TO SR ON AMIO. HE WAS DC HOME BUT ON METOPROLOL; NO AMIO STAFFED WITH DR LESLIE 1230 REPEAT 12 LEAD REQUESTED OF DAMEON-- PT SR 100-110 LABS NOTED TROP ELEVATED 1240 CARDS AWARE- [place] [facility] [place] 09/28/19 09/28/19 09/28/19 Range/Units 11:21 11:31 11:31 WBC 19.5 H (4.5-11.0) K/mm3 RBC 3.87 (3.65-5.03) M/mm3 Hgb 12.0 (11.8-15.2) gm/dl Hct 35.3 L (35.5-45.6) % MCV 91 (84-94) fl MCH 31 (28-32) pg MCHC 34 (32-34) % RDW 17.0 H (13.2-15.2) % Plt Count 176 (140-440) K/mm3 Lymph % (Auto) 2.9 L (13.4-35.0) % [place] % (Auto) 7.3 (0.0-7.3) % Eos % (Auto) 0.0 (0.0-4.3) % Baso % (Auto) 0.1 (0.0-1.8) % Lymph # 0.6 L (1.2-5.4) K/mm3 [place] # 1.4 H (0.0-0.8) K/mm3 Eos # 0.0 (0.0-0.4) K/mm3 Baso # 0.0 (0.0-0.1) K/mm3 Seg Neutrophils % 89.7 H (40.0-70.0) % Seg Neutrophils # 17.5 H (1.8-7.7) K/mm3 PT 14.5 (12.2-14.9) Sec. INR 1.14 H (0.87-1.13) APTT 24.8 (24.2-36.6) Sec. Sodium (137-145) mmol/L Potassium (3.6-5.0) mmol/L Chloride (98-107) mmol/L Carbon Dioxide (22-30) mmol/L Anion Gap mmol/L BUN (9-20) mg/dL Creatinine (0.8-1.5) mg/dL Estimated GFR ml/min BUN/Creatinine Ratio % Glucose (75-100) mg/dL POC Glucose 187 H (70-105) Calcium (8.4-10.2) mg/dL Total Bilirubin (0.1-1.2) mg/dL AST (5-40) units/L ALT (7-56) units/L Alkaline Phosphatase (35-129) units/L Troponin T (0.00-0.029) ng/mL Total Protein (6.3-8.2) g/dL Albumin (3.9-5) g/dL Albumin/Globulin Ratio % Triglycerides (2-149) mg/dL Cholesterol (50-199) mg/dL LDL Cholesterol Direct (50-130) mg/dL HDL Cholesterol (40-59) mg/dL Cholesterol/HDL Ratio % /15/19 Range/Units 11:31 WBC (4.5-11.0) K/mm3 RBC (3.65-5.03) M/mm3 Hgb (11.8-15.2) gm/dl Hct (35.5-45.6) % MCV (84-94) fl MCH (28-32) pg MCHC (32-34) % RDW (13.2-15.2) % Plt Count (140-440) K/mm3 Lymph % (Auto) (13.4-35.0) % [place] % (Auto) (0.0-7.3) % Eos % (Auto) (0.0-4.3) % Baso % (Auto) (0.0-1.8) % Lymph # (1.2-5.4) K/mm3 [place] # (0.0-0.8) K/mm3 Eos # (0.0-0.4) K/mm3 Baso # (0.0-0.1) K/mm3 Seg Neutrophils % (40.0-70.0) % Seg Neutrophils # (1.8-7.7) K/mm3 PT (12.2-14.9) Sec. INR (0.87-1.13) APTT (24.2-36.6) Sec. Sodium 137 (137-145) mmol/L Potassium 3.4 L (3.6-5.0) mmol/L Chloride 91.8 L (98-107) mmol/L Carbon Dioxide 20 L (22-30) mmol/L Anion Gap 29 mmol/L BUN 23 H (9-20) mg/dL Creatinine 1.8 H (0.8-1.5) mg/dL Estimated GFR 37 ml/min BUN/Creatinine Ratio 13 % Glucose 185 H (75-100) mg/dL POC Glucose (70-105) Calcium 8.9 (8.4-10.2) mg/dL Total Bilirubin 1.70 H (0.1-1.2) mg/dL AST 126 H (5-40) units/L ALT 62 H (7-56) units/L Alkaline Phosphatase 181 H (35-129) units/L Troponin T 0.368 H* (0.00-0.029) ng/mL Total Protein 6.4 (6.3-8.2) g/dL Albumin 3.8 L (3.9-5) g/dL Albumin/Globulin Ratio 1.5 % Triglycerides 249 H (2-149) mg/dL Cholesterol 123 (50-199) mg/dL LDL Cholesterol Direct 46 L (50-130) mg/dL HDL Cholesterol 44 (40-59) mg/dL Cholesterol/HDL Ratio 2.79 % Vital Signs 09/28/19 09/28/19 09/28/19 11:12 11:16 11:22 Pulse Rate 147 H 124 H Respiratory 27 H 21 21 Rate Blood Pressure O2 Sat by Pulse 96 95 95 Oximetry 09/28/19 09/28/19 09/28/19 11:30 11:45 12:00 Pulse Rate 117 H 116 H 131 H Respiratory 17 23 32 H Rate Blood Pressure 132/63 141/71 140/72 O2 Sat by Pulse 96 96 90 Oximetry 09/28/19 12:15 Pulse Rate 112 H Respiratory 22 Rate Blood Pressure 143/67 O2 Sat by Pulse 97 Oximetry PT AND FAMILY UPDATED ON PLAN OF CARE- ADMIT FOR FURTHER WORK UP. 1256 DR DIA AWARE OF PT PRESENTATION. WILL ADMIT TO [facility] FOR FURTHER EVALUATION - Differential Diagnosis SVT RO ACS Critical care attestation.: If time is entered above; I have spent that time in minutes in the direct care of this critically ill patient, excluding procedure time. ED Disposition Clinical Impression: Atrial fibrillation with RVR, Elevated troponin, Hx of CABG, Stented coronary artery, Leukocytosis, MICKIE (acute kidney injury) Disposition: DC-09 OP ADMIT IP TO THIS HOSP Is pt being admited?: Yes Does the pt Need Aspirin: Yes Condition: Stable Referrals: DONNA MILLIGAN MD [Staff Physician] - 3-5 Days Time of Disposition: 12:51
[2019-09-28] MEDS ORDERED: AMIODARONE 150 MG/3 ML INJ IV ONE (11:13)
[2019-09-28] MEDS ORDERED: ASPIRIN 325 MG TAB PO ONE (11:16)
[2019-09-28] MEDS ORDERED: ONDANSETRON 4 MG ODT TAB PO ONE (11:17)
[2019-09-28] MEDS ORDERED: AMIODARONE 150 MG in DEXTROSE 5% IN WATER 97 ML IV ONE (11:30)
[2019-09-28 12:19] LABS: INR 1.14 (0.87-1.13)
[2019-09-28 12:20] LABS: Partial Thromboplastin Time 24.8 Sec. (24.2-36.6)
[2019-09-28 12:22] LABS: Albumin 3.8 g/dL (3.9-5); Calcium 8.9 mg/dL (8.4-10.2)
--- NOTE | 2019-09-28 12:25 | XRay Report ---
CHEST 1 VIEW INDICATION: Chest Pain. COMPARISON: 01/18/2019 FINDINGS: Support devices: None. Heart: Within normal limits. Lungs/Pleura: No acute air space or interstitial disease. Additional findings: None. IMPRESSION: No acute findings. Signer Name: Td Davis Jr, MD Signed: 09/28/2019 12:20 PM Workstation Name: [id number]
[2019-09-28 12:28] LABS: Basophils % (Auto) 0.1 % (0.0-1.8); Hematocrit 35.3 % (35.5-45.6); Lymphocytes # (Auto) 0.6 K/mm3 (1.2-5.4); Lymphocytes % (Auto) 2.9 % (13.4-35.0); Mean Corpuscular HGB Conc 34 % (32-34); Mean Corpuscular Volume 91 fl (84-94); Monocytes # (Auto) 1.4 K/mm3 (0.0-0.8); Monocytes % (Auto) 7.3 % (0.0-7.3); Platelet Count 176 K/mm3 (140-440); Red Blood Count 3.87 M/mm3 (3.65-5.03)
[2019-09-28] MEDS ORDERED: AMIODARONE 900 MG in DEXTROSE 5% IN WATER 482 ML IV SCH (12:30)
[2019-09-28 12:36] LABS: Chol/HDL Ratio 2.79 %
[2019-09-28 13:15] LABS: Bilirubin,Urine NEG (Negative); Blood,Urine SM (Negative); Mucus,Urine FEW /HPF; Urobilinogen,Urine < 2.0 mg/dL (<2.0)
[2019-09-28 13:19] LABS: Color,Urine Yellow (Yellow)
--- NOTE | 2019-09-28 13:40 | Consultation ---
History of Present Illness Consult date: 09/28/19 Requesting physician: HI VAZQUEZ Consult reason: atrial fibrillation History of present illness: The pt is a 74 YO male with a past medical history of atrial fibrillation, CAD s/p multiple PCIs, robotic CABG x 1 (HERNANDEZ to LAD) in 2014, carotid stenosis s/p right CEA in 2016, HTN, HLP, CKD, ETOH use . He is followed in our office by Dr. Dhaliwal. He presented with c/o palpitations which awoke him from sleep this morning at 5AM. He also reports increasing fatigue and decreased exercise tolerance for the past several months. He was recently scheduled for loop recorder implantation on 10/16/2019 due to persistent c/o palpitations and lightheadedness. He denies any chest pain, SOB, n/v, diaphoresis or syncope. Following arrival, pt was noted to be in AFib with RVR. He was given IV amiodarone and initiated on amio gtt and has since converted to NSR. He remains in NSR on evaluation. Of note, pt was admitted here at [facility] in 01/2019 for eval/management of new onset AFib, hypomag, NSTEMI type II. He was noted to have a brief bout of AFib which converted to NSR with IV amiodarone and thus was not initiated on alf systemic AC at that time due to brief duration of AFib (<24Hr). He was d/c'd laura e on Toprol XL 50mg daily and ETOH cessation was strongly encouraged. Echo done 10/2018 showed EF 50%, impaired relaxation, trace AR, trace MRRaysa Norton MPI stress test done 10/2018 showed mod to large minimally reversible predominantly fixed inferolateral perfusion defect of mod severity, EF 58%. In 02/2015 he underwent robotic HERNANDEZ to LAD and PCI of proximal RCA. Past History Past Medical History: other (as per HPI) Medications and Allergies Allergies Allergy/AdvReac Type Severity Reaction Status Date / Time No Known Allergies Allergy Verified 05/05/15 13:06 Home Medications Medication Instructions Recorded Confirmed Last Taken Type Niacin [Niaspan] 500 mg PO DAILY 05/05/15 01/18/19 05/17/17 History Atorvastatin [Lipitor] 80 mg PO DAILY 01/18/19 01/18/19 Unknown History Cholecalciferol (Vitamin D3) 3,000 unit PO DAILY 01/18/19 01/18/19 Unknown History [Vitamin D3 3,000 unit] Clopidogrel Bisulfate [Plavix] 75 mg PO DAILY 01/18/19 01/18/19 Unknown History Duloxetine HCl [DULoxetine] 60 mg PO QDAY 01/18/19 01/18/19 Unknown History Ezetimibe [Zetia] 5 mg PO QDAY 01/18/19 01/18/19 Unknown History Loratadine [Claritin] 10 mg PO DAILY 01/18/19 01/18/19 Unknown History Losartan [Cozaar] 100 mg PO QDAY 01/18/19 01/18/19 Unknown History Tadalafil [Cialis] 5 mg PO QDAY 01/18/19 01/18/19 Unknown History hydroCHLOROthiazide [HCTZ] 25 mg PO QDAY 01/18/19 01/18/19 Unknown History Metoprolol Succinate [Toprol Xl] 50 mg PO DAILY #30 tab.er.24h 01/19/19 Unknown Rx Active Meds: Active Medications Amiodarone HCl 900 mg/ (Dextrose) 500 mls @ 33.333 mls/hr IV DIRECT NINA; Protocol Last Admin: 09/28/19 12:00 Dose: 1 mg/min, 33.333 mls/hr Documented by: Review of Systems Constitutional: fatigue, no weight loss, no weight gain, no fever, no chills, no sweats Ears, nose, mouth and throat: no ear pain, no nose pain, no sinus pressure, no sinus pain Cardiovascular: palpitations, rapid/irregular heart beat, lightheadedness, decreased exercise tolerance, no chest pain, no orthopnea, no edema, no syncope, no shortness of breath, no dyspnea on exertion, no paroxysmal nocturnal dyspnea, no high blood pressure Respiratory: no cough, no shortness of breath, no dyspnea on exertion, no congestion, no wheezing, no pain on inspiration Gastrointestinal: no abdominal pain, no nausea, no vomiting, no diarrhea, no constipation Genitourinary Male: no dysuria, no hematuria, no flank pain, no discharge, no urinary frequency, no urinary hesitancy Musculoskeletal: no neck stiffness, no neck pain, no shooting arm pain, no arm numbness/tingling, no low back pain, no shooting leg pain Integumentary: no rash, no pruritis, no redness, no sores, no wounds Neurological: no head injury, no paralysis, no weakness, no parathesias, no numbness, no tingling, no seizures, no syncope Psychiatric: no anxiety Endocrine: no cold intolerance, no heat intolerance Hematologic/Lymphatic: no easy bruising, no easy bleeding Allergic/Immunologic: no urticaria, no wheezing Physical Examination Vital Signs Pulse Resp Pulse Ox 147 H 27 H 96 09/28/19 11:12 09/28/19 11:12 09/28/19 11:12 General appearance: no acute distress HEENT: Positive: PERRL, Normocephaly, Mucus Membranes Moist Neck: Positive: neck supple, trachea midline Cardiac: Positive: Reg Rate and Rhythm, S1/S2 Lungs: Positive: Decreased Breath Sounds Neuro: Positive: Grossly Intact Abdomen: Negative: Tender Skin: Negative: Rash Musculoskeletal: No Pain Extremities: Absent: edema Results 09/28/19 11:31 09/28/19 11:31 Cardiac Enzymes 09/28/19 Range/Units 11:31 AST 126 H (5-40) units/L Coagulation 09/28/19 Range/Units 11:31 PT 14.5 (12.2-14.9) Sec. INR 1.14 H (0.87-1.13) APTT 24.8 (24.2-36.6) Sec. Lipids 09/28/19 Range/Units 11:31 Triglycerides 249 H (2-149) mg/dL Cholesterol 123 (50-199) mg/dL HDL Cholesterol 44 (40-59) mg/dL Cholesterol/HDL Ratio 2.79 % CBC 09/28/19 Range/Units 11:31 WBC 19.5 H (4.5-11.0) K/mm3 RBC 3.87 (3.65-5.03) M/mm3 Hgb 12.0 (11.8-15.2) gm/dl Hct 35.3 L (35.5-45.6) % Plt Count 176 (140-440) K/mm3 Lymph # 0.6 L (1.2-5.4) K/mm3 [place] # 1.4 H (0.0-0.8) K/mm3 Eos # 0.0 (0.0-0.4) K/mm3 Baso # 0.0 (0.0-0.1) K/mm3 Comprehensive Metabolic Panel 09/28/19 Range/Units 11:31 Sodium 137 (137-145) mmol/L Potassium 3.4 L (3.6-5.0) mmol/L Chloride 91.8 L (98-107) mmol/L Carbon Dioxide 20 L (22-30) mmol/L BUN 23 H (9-20) mg/dL Creatinine 1.8 H (0.8-1.5) mg/dL Glucose 185 H (75-100) mg/dL Calcium 8.9 (8.4-10.2) mg/dL AST 126 H (5-40) units/L ALT 62 H (7-56) units/L Alkaline Phosphatase 181 H (35-129) units/L Total Protein 6.4 (6.3-8.2) g/dL Albumin 3.8 L (3.9-5) g/dL - Imaging and Cardiology Echo: report reviewed (10/2018 showed EF 50%, impaired relaxation, trace AR, trace MR. ) EKG: report reviewed, image reviewed EKG interpretations - Telemetry EKG Rhythm: Sinus Rhythm - EKG Supraventricular dysrhythmia: atrial fibrillation Assessment and Plan Pt noted to have elevated LFTs, he is known to have h/o ETOH abuse. D/c IV amio as he has converted back to NSR and initiate PO lopressor. Initiate heparin gtt in setting of AFib and plan for conversion to OAC prior to discharge. Cont home ASA and d/c home Plavix to avoid concurrent usage of triple anti-coagulant therapy. Pt noted to have elevated troponins. He denies any occurrence of chest pain. Lexiscan MPI stress test done 10/2018 showed mod to large minimally reversible predominantly fixed inferolateral perfusion defect of mod severity, EF 58%. Will cont to trend Nicole and repeat ECG in AM. Cont heparin gtt. If Nicole trend upwards, consider LHC on Tuesday. Serum Mg low - replete Mg and K+ and f/u CMP and Mg in AM. Pt states he snores loudly and has been progressively fatigued during the day, son at bedside says pt sometimes stops breathing while sleeping. Pt may benefit from OP sleep study. Further recs to follow per hospital course. The patient has been seen in conjunction with Dr. Sharif who agrees with the assessment and plan of care. - Patient Problems (1) Paroxysmal atrial fibrillation with RVR Current Visit: No Status: Chronic (2) NSTEMI (non-ST elevated myocardial infarction) Current Visit: No Status: Acute (3) CAD (coronary artery disease) Current Visit: No Status: Chronic Qualifiers: Coronary Disease-Associated Artery/Lesion type: [place] artery Associated angina: with stable angina (4) Hx of CABG Current Visit: No Status: Chronic (5) Stented coronary artery Current Visit: No Status: Chronic (6) S/P carotid endarterectomy Current Visit: No Status: Chronic (7) HTN (hypertension) Current Visit: No Status: Chronic (8) Hyperlipidemia Current Visit: No Status: Chronic (9) Hypokalemia Current Visit: No Status: Acute (10) MICKIE (acute kidney injury) Current Visit: No Status: Acute (11) Leukocytosis Current Visit: No Status: Acute (12) Transaminitis Current Visit: Yes Status: Acute
[2019-09-28] MEDS ORDERED: HEPARIN 10,000 UNITS/10 ML VIAL IV ONE (14:06)
[2019-09-28] MEDS ORDERED: POTASSIUM CHLORIDE ER 20 MEQ TAB PO ONE ×2 (14:07→14:42)
[2019-09-28] MEDS ORDERED: METOPROLOL TARTRATE 50 MG TAB ONE (14:43)
[2019-09-28] MEDS ORDERED: HEPARIN/ 0.45% NACL DRIP 25,000 UNIT/500 ML BAG ONE (14:43)
[2019-09-28] MEDS ORDERED: HEPARIN 10,000 UNITS/10 ML VIAL ONE (14:43)
[2019-09-28] MEDS: METOPROLOL TARTRATE 50 MG TAB PO SCH ×2 (14:53→22:36)
[2019-09-28] MEDS ORDERED: ONDANSETRON 4 MG/2 ML INJ IV ONE (14:58)
[2019-09-28] MEDS ORDERED: ONDANSETRON 4 MG/2 ML INJ ONE (14:58)
[2019-09-28] MEDS ORDERED: HEPARIN/ 0.45% NACL DRIP 25,000 UNIT/500 ML BAG IV SCH (15:00)
[2019-09-28] MEDS ORDERED: MAGNESIUM SULFATE 4 GM/100 ML BAG IV ONE (16:30)
[2019-09-28 20:12] LABS: Hematocrit 33.6 % (35.5-45.6); Hemoglobin 11.5 gm/dl (11.8-15.2)
[2019-09-28 20:24] LABS: INR 1.29 (0.87-1.13)
[2019-09-28] MEDS ORDERED: BISMUTH SUBSALICYLATE 262 MG/15 ML ORAL LIQD PO PRN (20:32)
[2019-09-28 21:55] LABS: Partial Thromboplastin Time TNR Sec. (24.2-36.6)
[2019-09-28] MEDS ORDERED: NON-FORMULARY EACH (Atorvastatin [Lipitor] 80 MG) PO SCH (22:00)
[2019-09-28] MEDS ORDERED: LORazepam 2 MG/ML VIAL IV PRN ×2 (22:27)
[2019-09-28] MEDS: MELATONIN 5 MG TAB PO PRN (22:39)
--- NOTE | 2019-09-28 22:46 | History and Physical Report ---
History of Present Illness Date of examination: 09/28/19 Date of admission: 09/28/19 12:53 Chief complaint: Palpitations since AM History of present illness: The pt is a 74 YO male with a past medical history of atrial fibrillation, CAD s/p multiple PCIs, robotic CABG x 1 (HERNANDEZ to LAD) in 2014, carotid stenosis s/p right CEA in 2016, HTN, HLP, CKD, ETOH use . He presented with c/o palpitations which awoke him from sleep this morning at 5AM. He also reports increasing fatigue and decreased exercise tolerance for the past several months. He was recently scheduled for loop recorder implantation on 10/16/2019 due to persistent c/o palpitations and lightheadedness. He denies any chest pain, SOB, n/v, diaphoresis or syncope. Following arrival, pt was noted to be in AFib with RVR. He was given IV amiodarone and initiated on amio gtt and has since converted to NSR. He remains in NSR on evaluation. Of note, pt was admitted here at [facility] in 01/2019 for eval/management of new onset AFib, hypomag, NSTEMI type II. 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 He was d/c'd home on Toprol XL 50mg daily and ETOH cessation was strongly encouraged. Echo done 10/2018 showed EF 50%, impaired relaxation, trace AR, trace MR. Errol MPI stress test done 10/2018 showed mod to large minimally reversible predominantly fixed inferolateral perfusion defect of mod severity, EF 58%. In 02/2015 he underwent robotic HERNANDEZ to LAD and PCI of proximal RCA. Past Medical History Previous Medical History?: Yes Hypertension: Yes (FOR 12 YRS) Surgical History Past Surgical History?: Yes Coronary Stent: Yes (X3 IN 2003, X2 IN 2006 & X2 IN 2014) Open Heart Surgery: Yes (CABG ONE VESSEL 02/2015) Additional Surgical History: Left elbow, back Family History Family history: no significant Social History Smoking Status: Former Smoker Substance Use Type: Alcohol Medications Home Medications: Home Medications Medication Instructions Recorded Confirmed Last Taken Type Niacin [Niaspan] 500 mg PO DAILY 06/01/18/19 05/17/17 History Atorvastatin [Lipitor] 80 mg PO DAILY 01/18/19 01/18/19 Unknown History Cholecalciferol (Vitamin D3) 3,000 unit PO DAILY 01/18/19 01/18/19 Unknown History [Vitamin D3 3,000 unit] Clopidogrel Bisulfate [Plavix] 75 mg PO DAILY 01/18/19 01/18/19 Unknown History Duloxetine HCl [DULoxetine] 60 mg PO QDAY 01/18/19 01/18/19 Unknown History Ezetimibe [Zetia] 5 mg PO QDAY 01/18/19 01/18/19 Unknown History Loratadine [Claritin] 10 mg PO DAILY 01/18/19 01/18/19 Unknown History Losartan [Cozaar] 100 mg PO QDAY 01/18/19 01/18/19 Unknown History Tadalafil [Cialis] 5 mg PO QDAY 01/18/19 01/18/19 Unknown History hydroCHLOROthiazide [HCTZ] 25 mg PO QDAY 01/18/19 01/18/19 Unknown History Metoprolol Succinate [Toprol Xl] 50 mg PO DAILY #30 tab.er.24h 01/19/19 Unknown Rx Review of Systems Constitutional: fatigue, no weight loss, no weight gain, no fever, no chills, no sweats Ears, nose, mouth and throat: no ear pain, no nose pain, no sinus pressure, no sinus pain Cardiovascular: palpitations, rapid/irregular heart beat, lightheadedness, decreased exercise tolerance, no chest pain, no orthopnea, no edema, no syncope, no shortness of breath, no dyspnea on exertion, no paroxysmal nocturnal dyspnea, no high blood pressure Respiratory: no cough, no shortness of breath, no dyspnea on exertion, no congestion, no wheezing, no pain on inspiration Gastrointestinal: no abdominal pain, no nausea, no vomiting, no diarrhea, no constipation Genitourinary Male: no dysuria, no hematuria, no flank pain, no discharge, no urinary frequency, no urinary hesitancy Musculoskeletal: no neck stiffness, no neck pain, no shooting arm pain, no arm numbness/tingling, no low back pain, no shooting leg pain Integumentary: no rash, no pruritis, no redness, no sores, no wounds Neurological: no head injury, no paralysis, no weakness, no parathesias, no numbness, no tingling, no seizures, no syncope Psychiatric: no anxiety Endocrine: no cold intolerance, no heat intolerance Hematologic/Lymphatic: no easy bruising, no easy bleeding Allergic/Immunologic: no urticaria, no wheezing Past History Past Medical History: other (as per HPI) Medications and Allergies Allergies Allergy/AdvReac Type Severity Reaction Status Date / Time No Known Allergies Allergy Verified 05/05/15 13:06 Home Medications Medication Instructions Recorded Confirmed Last Taken Type Niacin [Niaspan] 500 mg PO BID 05/05/15 09/28/19 09/28/19 History Clopidogrel Bisulfate [Plavix] 75 mg PO DAILY 01/18/19 09/28/19 09/28/19 History Duloxetine HCl [DULoxetine] 60 mg PO BID 01/18/19 09/28/19 09/28/19 History Ezetimibe [Zetia] 5 mg PO QDAY 01/18/19 09/28/19 09/28/19 History Losartan [Cozaar] 100 mg PO QDAY 01/18/19 09/28/19 09/28/19 History hydroCHLOROthiazide [HCTZ] 12.5 mg PO QDAY 01/18/19 09/28/19 09/28/19 History Metoprolol Succinate [Toprol Xl] 50 mg PO BID 09/28/19 09/28/19 09/28/19 History Nitroglycerin [Nitrostat] 0.4 mg SL Q5M PRN 09/28/19 09/28/19 Unknown History Rosuvastatin Calcium [Crestor] 40 mg PO QDAY 09/28/19 09/28/19 09/28/19 History Active Meds: Active Medications Aspirin (Aspirin) 325 mg PO QDAY NINA Atorvastatin Calcium (Lipitor) 80 mg PO QHS NINA Last Admin: 09/28/19 22:39 Dose: 80 mg Documented by: Bismuth Subsalicylate (Pepto Bismol) 262 mg PO Q6H PRN PRN Reason: Indigestion Heparin Sodium/Sodium Chloride (Heparin/ 0.45% Nacl-25,000 Unit/500 Ml) 25,000 unit in 500 mls @ 24 mls/hr IV TITR NINA; Protocol Last Titration: 09/28/19 22:12 Dose: 0 units/hr, 0 mls/hr Documented by: Lorazepam (Ativan) 2 mg IV Q1HR PRN PRN Reason: CIWA-Ar 8-15 Lorazepam (Ativan) 4 mg IV Q1HR PRN PRN Reason: CIWA-Ar 16-25 Lorazepam (Ativan) 4 mg IV Q15MIN PRN PRN Reason: CIWA-Ar >25 Melatonin (Melatonin) 5 mg PO QHS PRN PRN Reason: Sleep Last Admin: 09/28/19 22:39 Dose: 5 mg Documented by: Metoprolol Tartrate (Metoprolol) 50 mg PO BID NINA Last Admin: 09/28/19 22:36 Dose: Not Given Documented by: Exam - Constitutional Vitals: Temp Pulse Resp BP Pulse Ox 80 20 97/66 93 09/28/19 19:31 09/28/19 19:31 09/28/19 19:31 09/28/19 19:31 General appearance: Present: no acute distress, well-nourished - EENT Eyes: Present: PERRL ENT: hearing intact, clear oral mucosa - Neck Neck: Present: supple, normal ROM - Respiratory Respiratory effort: normal Respiratory: bilateral: CTA - Cardiovascular Heart rate: 130 Rhythm: regular Heart Sounds: Present: S1 & S2. Absent: rub, click - Extremities Extremities: no ischemia, pulses intact, pulses symmetrical, No edema Peripheral Pulses: within normal limits - Abdominal General gastrointestinal: Present: soft, non-tender, non-distended, normal bowel sounds Male genitourinary: Present: normal - Rectal Rectal Exam: deferred - Integumentary Integumentary: Present: clear, warm, dry - Musculoskeletal Musculoskeletal: gait normal, strength equal bilaterally - Psychiatric Psychiatric: appropriate mood/affect, intact judgment & insight - Neurologic Neurologic: CNII-XII intact, moves all extremities - Allied Health Allied health notes reviewed: nursing, case management Results - Labs CBC & Chem 7: 09/28/19 19:13 09/29/19 05:31 Labs: Laboratory Last Values WBC 19.5 K/mm3 (4.5-11.0) H 09/28/19 11:31 RBC 3.87 M/mm3 (3.65-5.03) 09/28/19 11:31 Hgb 11.5 gm/dl (11.8-15.2) L 09/28/19 19:13 Hct 33.6 % (35.5-45.6) L 09/28/19 19:13 MCV 91 fl (84-94) 09/28/19 11:31 MCH 31 pg (28-32) 09/28/19 11:31 MCHC 34 % (32-34) 09/28/19 11:31 RDW 17.0 % (13.2-15.2) H 09/28/19 11:31 Plt Count 168 K/mm3 (140-440) 09/28/19 19:13 Lymph % (Auto) 2.9 % (13.4-35.0) L 09/28/19 11:31 [place] % (Auto) 7.3 % (0.0-7.3) 09/28/19 11:31 Eos % (Auto) 0.0 % (0.0-4.3) 09/28/19 11:31 Baso % (Auto) 0.1 % (0.0-1.8) 09/28/19 11:31 Lymph # 0.6 K/mm3 (1.2-5.4) L 09/28/19 11:31 [place] # 1.4 K/mm3 (0.0-0.8) H 09/28/19 11:31 Eos # 0.0 K/mm3 (0.0-0.4) 09/28/19 11:31 Baso # 0.0 K/mm3 (0.0-0.1) 09/28/19 11:31 Seg Neutrophils % 89.7 % (40.0-70.0) H 09/28/19 11:31 Seg Neutrophils # 17.5 K/mm3 (1.8-7.7) H 09/28/19 11:31 PT 15.9 Sec. (12.2-14.9) H 09/28/19 19:13 INR 1.29 (0.87-1.13) H 09/28/19 19:13 APTT TNR 09/28/19 19:13 Heparin Anti-Xa Level 1.23 U.I./ml (0.3-0.7) H 09/28/19 21:06 Sodium 137 mmol/L (137-145) 09/28/19 11:31 Potassium 3.4 mmol/L (3.6-5.0) L 09/28/19 11:31 Chloride 91.8 mmol/L (98-107) L 09/28/19 11:31 Carbon Dioxide 20 mmol/L (22-30) L 09/28/19 11:31 Anion Gap 29 mmol/L 09/28/19 11:31 BUN 23 mg/dL (9-20) H 09/28/19 11:31 Creatinine 1.8 mg/dL (0.8-1.5) H 09/28/19 11:31 Estimated GFR 37 ml/min 09/28/19 11:31 BUN/Creatinine Ratio 13 % 09/28/19 11:31 Glucose 185 mg/dL (75-100) H 09/28/19 11:31 POC Glucose 187 (70-105) H 09/28/19 11:21 Calcium 8.9 mg/dL (8.4-10.2) 09/28/19 11:31 Magnesium 1.50 mg/dL (1.7-2.3) L 09/28/19 13:19 Total Bilirubin 1.70 mg/dL (0.1-1.2) H 09/28/19 11:31 AST 126 units/L (5-40) H 09/28/19 11:31 ALT 62 units/L (7-56) H 09/28/19 11:31 Alkaline Phosphatase 181 units/L (35-129) H 09/28/19 11:31 Troponin T 0.558 ng/mL (0.00-0.029) H* D 09/28/19 19:13 NT-Pro-B Natriuret Pep 3825 pg/mL (0-900) H 09/28/19 13:19 Total Protein 6.4 g/dL (6.3-8.2) 09/28/19 11:31 Albumin 3.8 g/dL (3.9-5) L 09/28/19 11:31 Albumin/Globulin Ratio 1.5 % 09/28/19 11:31 Triglycerides 249 mg/dL (2-149) H 09/28/19 11:31 Cholesterol 123 mg/dL (50-199) 09/28/19 11:31 LDL Cholesterol Direct 46 mg/dL (50-130) L 09/28/19 11:31 HDL Cholesterol 44 mg/dL (40-59) 09/28/19 11:31 Cholesterol/HDL Ratio 2.79 % 09/28/19 11:31 TSH 2.910 mlU/mL (0.270-4.200) 09/28/19 13:19 Urine Color Yellow (Yellow) 09/28/19 12:51 Urine Turbidity Slightly-cloudy (Clear) 09/28/19 12:51 Urine pH 5.0 (5.0-7.0) 09/28/19 12:51 Ur Specific [place] 1.018 (1.003-1.030) 09/28/19 12:51 Urine Protein 100 mg/dl mg/dL (Negative) 09/28/19 12:51 Urine Glucose (UA) Neg mg/dL (Negative) 09/28/19 12:51 Urine Ketones Tr mg/dL (Negative) 09/28/19 12:51 Urine Blood Sm (Negative) 09/28/19 12:51 Urine Nitrite Neg (Negative) 09/28/19 12:51 Urine Bilirubin Neg (Negative) 09/28/19 12:51 Urine Urobilinogen < 2.0 mg/dL (<2.0) 09/28/19 12:51 Ur Leukocyte Esterase Neg (Negative) 09/28/19 12:51 Urine WBC (Auto) 3.0 /HPF (0.0-6.0) 09/28/19 12:51 Urine RBC (Auto) 2.0 /HPF (0.0-6.0) 09/28/19 12:51 U Epithel Cells (Auto) < 1.0 /HPF (0-13.0) 09/28/19 12:51 Urine Mucus Few /HPF 09/28/19 12:51 Assessment and Plan Assessment and plan: 1)A Fib with RVR Initiated Amiodarone drip Cardiology consult requested 2)HTN Antihypertensives to continue 3)CAD On Isosorbide 4)HLD On Statins 5)DVT prophylaxis On Heparin and GI Prophylaxis Advance Directives: Yes (Full code) VTE prophylaxis?: Chemical Plan of care discussed with patient/family: Yes
[2019-09-28] MEDS ORDERED: ACETAMINOPHEN 325 MG TAB PO PRN (22:48)
[2019-09-28] MEDS ORDERED: ONDANSETRON 4 MG/2 ML INJ IV PRN (22:48)
[2019-09-28] MEDS ORDERED: SODIUM CHLORIDE 0.9% 1000 ML 1,000 ML IV SCH (23:00)
[2019-09-28 23:42] LABS: Calcium 8.7 mg/dL (8.4-10.2)
[2019-09-29] MEDS: LORazepam 2 MG/ML VIAL IV PRN ×2 (00:07→23:18)
[2019-09-29] MEDS: METOPROLOL SUCCINATE XL 50 MG TAB PO SCH ×2 (00:41→09:59)
[2019-09-29] MEDS: DULoxetine 30 MG CAP PO SCH ×3 (00:41→22:00)
[2019-09-29] MEDS: NIACIN ER 500 MG TAB PO SCH ×3 (01:52→22:00)
[2019-09-29 06:28] LABS: Albumin 3.6 g/dL (3.9-5); Calcium 8.5 mg/dL (8.4-10.2)
--- NOTE | 2019-09-29 08:24 | Progress Note ---
Assessment and Plan Patient has decreased LV function patient is maintaining sinus rhythm with increase beta luba to Toprol-XL 100 mg. In view of worsening renal function. Losartan and hydrochlorothiazide and start patient on hydralazine and nitrates. Patient has a non-ST elevation [place] type to treat medically. We will stop Plavix and start oral anticoagulation eliquis for atrial fibrillation. Discussed with patient and patient's son about coronary plan discussed in detail about stopping drinking. Patient's potassium was corrected with oral supplementation recheck labs in a.m. - Patient Problems (1) Acute on chronic renal insufficiency Current Visit: Yes Status: Acute (2) Acute systolic ACC/AHA stage C congestive heart failure Current Visit: Yes Status: Acute (3) Atrial fibrillation with RVR Current Visit: No Status: Acute (4) Hypokalemia Current Visit: No Status: Acute (5) NSTEMI (non-ST elevated myocardial infarction) Current Visit: No Status: Acute (6) CAD (coronary artery disease) Current Visit: No Status: Chronic Qualifiers: Coronary Disease-Associated Artery/Lesion type: [place] artery [place] vs. transplanted heart: [place] heart Associated angina: without angina Qualified Code(s): I25.10 - Atherosclerotic heart disease of [place] coronary artery without angina pectoris (7) EtOH dependence Current Visit: No Status: Chronic (8) HTN (hypertension) Current Visit: No Status: Chronic Qualifiers: Hypertension type: essential hypertension Qualified Code(s): I10 - Essential (primary) hypertension (9) History of right-sided carotid endarterectomy Current Visit: No Status: Chronic (10) Hx of CABG Current Visit: No Status: Chronic (11) Hyperlipemia, mixed Current Visit: Yes Status: Chronic Subjective Date of service: 09/29/19 Principal diagnosis: afib Interval history: no palpations no chest pain Objective Vital Signs Temp Pulse Resp BP Pulse Ox 09/29/19 07:28 98.0 F 91 H 18 96/58 95 09/29/19 05:00 97.7 F 09/29/19 04:59 99 H 20 128/67 97 09/29/19 02:34 18 09/28/19 23:45 97.6 F 09/28/19 23:43 78 18 117/64 94 09/28/19 22:00 80 09/28/19 19:31 80 20 97/66 93 09/28/19 17:17 83 09/28/19 17:01 85 120/63 93 09/28/19 16:20 21 146/74 95 09/28/19 16:15 12 146/74 98 09/28/19 16:00 19 132/63 96 09/28/19 15:45 30 H 133/72 96 09/28/19 15:30 101 H 21 139/61 97 09/28/19 15:15 110 H 22 139/61 95 09/28/19 15:00 106 H 19 143/62 97 09/28/19 14:53 112 H 134/67 09/28/19 14:45 103 H 12 134/67 91 09/28/19 14:30 101 H 17 137/69 97 09/28/19 14:15 107 H 21 137/65 93 09/28/19 14:00 114 H 15 120/64 96 09/28/19 13:46 114 H 15 135/57 96 09/28/19 13:30 108 H 22 138/71 96 09/28/19 13:15 106 H 19 133/63 99 09/28/19 13:00 116 H 27 H 138/74 96 09/28/19 12:45 109 H 22 147/70 96 09/28/19 12:30 115 H 24 144/62 95 09/28/19 12:15 112 H 22 143/67 97 09/28/19 12:00 131 H 32 H 140/72 90 09/28/19 11:45 116 H 23 141/71 96 09/28/19 11:30 117 H 17 132/63 96 09/28/19 11:22 21 95 09/28/19 11:16 124 H 21 95 09/28/19 11:12 147 H 27 H 96 - Physical Examination General: No Apparent Distress HEENT: Positive: PERRL, Normocephaly, Mucus Membranes Moist Neck: Positive: neck supple, trachea midline Cardiac: Positive: Reg Rate and Rhythm Lungs: Positive: clear to auscultation Neuro: Positive: Grossly Intact Abdomen: Negative: Tender Skin: Negative: Rash Musculoskeletal: No Pain Extremities: Absent: edema - Labs and Meds Cardiac Enzymes 09/28/19 09/29/19 Range/Units 11:31 05:31 AST 126 H 147 H (5-40) units/L Coagulation 09/28/19 09/28/19 Range/Units 11:31 19:13 PT 14.5 15.9 H (12.2-14.9) Sec. INR 1.14 H 1.29 H (0.87-1.13) APTT 24.8 TNR (24.2-36.6) Sec. Lipids 09/28/19 Range/Units 11:31 Triglycerides 249 H (2-149) mg/dL Cholesterol 123 (50-199) mg/dL HDL Cholesterol 44 (40-59) mg/dL Cholesterol/HDL Ratio 2.79 % CBC 09/28/19 09/28/19 Range/Units 11:31 19:13 WBC 19.5 H (4.5-11.0) K/mm3 RBC 3.87 (3.65-5.03) M/mm3 Hgb 12.0 11.5 L (11.8-15.2) gm/dl Hct 35.3 L 33.6 L (35.5-45.6) % Plt Count 176 168 (140-440) K/mm3 Lymph # 0.6 L (1.2-5.4) K/mm3 [place] # 1.4 H (0.0-0.8) K/mm3 Eos # 0.0 (0.0-0.4) K/mm3 Baso # 0.0 (0.0-0.1) K/mm3 Comprehensive Metabolic Panel 09/28/19 09/28/19 09/29/19 Range/Units 11:31 22:53 05:31 Sodium 137 132 L 136 L (137-145) mmol/L Potassium 3.4 L 3.9 3.2 L (3.6-5.0) mmol/L Chloride 91.8 L 92.6 L 97.2 L (98-107) mmol/L Carbon Dioxide 20 L 24 21 L (22-30) mmol/L BUN 23 H 21 H 20 (9-20) mg/dL Creatinine 1.8 H 2.1 H 2.0 H (0.8-1.5) mg/dL Glucose 185 H 172 H 129 H (75-100) mg/dL Calcium 8.9 8.7 8.5 (8.4-10.2) mg/dL AST 126 H 147 H (5-40) units/L ALT 62 H 58 H (7-56) units/L Alkaline Phosphatase 181 H 170 H (35-129) units/L Total Protein 6.4 6.2 L (6.3-8.2) g/dL Albumin 3.8 L 3.6 L (3.9-5) g/dL - Imaging and Cardiology EKG: report reviewed, image reviewed Pharmacologic stress test: report reviewed (Lexiscan MPI stress test done 10/2018 showed mod to large minimally reversible predominantly fixed inferolateral perfusion defect of mod severity, EF 58%.) Echo: report reviewed (10/2018 showed EF 50%, impaired relaxation, trace AR, trace MR. ), other (09/28/2019 ef 40-45%) - Telemetry EKG Rhythm: Sinus Rhythm
[2019-09-29] MEDS: hydrALAZINE 25 MG TAB PO SCH ×2 (08:39→13:27)
[2019-09-29] MEDS ORDERED: POTASSIUM CHLORIDE ER 20 MEQ TAB PO ONE (08:42)
[2019-09-29] MEDS: APIXABAN 5 MG TAB PO SCH ×2 (09:58→22:00)
[2019-09-29] MEDS ORDERED: CLOPIDOGREL 75 MG TAB PO SCH (10:00)
[2019-09-29] MEDS ORDERED: ASPIRIN 325 MG TAB PO SCH (10:00)
[2019-09-29] MEDS: METOPROLOL SUCCINATE XL 100 MG TAB PO SCH ×2 (10:00→10:35)
[2019-09-29] MEDS ORDERED: hydroCHLOROthiazide 12.5 MG CAP PO SCH (10:00)
[2019-09-29] MEDS ORDERED: NON-FORMULARY EACH (Rosuvastatin Calcium [Crestor] 40 MG) PO SCH (10:00)
[2019-09-29] MEDS ORDERED: LOSARTAN 50 MG TAB PO SCH (10:00)
[2019-09-29] MEDS ORDERED: EZETIMIBE 10 MG TAB PO SCH (12:00)
--- NOTE | 2019-09-29 14:13 | Progress Note ---
Assessment and Plan - Patient Problems (1) EtOH dependence Current Visit: Yes Status: Acute Plan to address problem: Has been stable. Educated on Alcoholics Anonymous. Patient states he would not have a problem with stopping he did not note a correlation between this and A. fib. No evidence of DT (2) Acute systolic ACC/AHA stage C congestive heart failure Current Visit: Yes Status: Acute Plan to address problem: Patient well compensated this particular time Lasix and nitrates FARIBA inhibitor. (3) Hyperlipemia, mixed Current Visit: Yes Status: Chronic Plan to address problem: Continue statin aggressive antilipid therapy. (4) Atrial fibrillation with RVR Current Visit: No Status: Acute Plan to address problem: Patient has optimal control with Toprol 100 mg. Continue present management. (5) HLD (hyperlipidemia) Current Visit: No Status: Acute (6) NSTEMI (non-ST elevated myocardial infarction) Current Visit: No Status: Acute (7) Acute on chronic renal insufficiency Current Visit: Yes Status: Acute Plan to address problem: Most likely secondary to prerenal azotemia. Will discontinue FARIBA inhibitor. Follow-up chemistry in a.m. If resumes back to baseline at 1.8 we'll discharge patient. History Interval history: Patient 74-year-old male presented with atrial fibrillation sinus rhythm now control with Toprol XL. Eliquis has been added. Spoke with cardiology today all courses and concerns answered. Patient at current stable rate very well- controlled. Patient denies any chest pain headache no shortness of breath. Spoke with patient about drinking and he does not get shakes. Son at bedside and confirmed this. Did speak with patient and tell him about the association between alcohol and atrial fibrillation. Hospitalist Physical - Constitutional Vitals: Temp Pulse Resp BP Pulse Ox 98.0 F 88 18 119/72 96 09/29/19 11:17 09/29/19 11:17 09/29/19 11:17 09/29/19 11:17 09/29/19 11:17 General appearance: Present: no acute distress, well-nourished - Neck Neck: Present: supple, normal ROM - Respiratory Respiratory effort: normal Respiratory: bilateral: CTA - Cardiovascular Rhythm: regular - Extremities Extremities: no ischemia, pulses intact, pulses symmetrical, No edema, normal temperature, normal color Peripheral Pulses: within normal limits - Abdominal General gastrointestinal: soft, non-tender, non-distended, normal bowel sounds, no hepatomegaly, no splenomegaly - Integumentary Integumentary: Present: clear, warm, dry - Psychiatric Psychiatric: appropriate mood/affect, intact judgment & insight, memory intact - Neurologic Neurologic: CNII-XII intact, moves all extremities Results - Labs CBC & Chem 7: 09/28/19 19:13 09/29/19 05:31 Labs: Laboratory Last Values WBC 19.5 K/mm3 (4.5-11.0) H 09/28/19 11:31 RBC 3.87 M/mm3 (3.65-5.03) 09/28/19 11:31 Hgb 11.5 gm/dl (11.8-15.2) L 09/28/19 19:13 Hct 33.6 % (35.5-45.6) L 09/28/19 19:13 MCV 91 fl (84-94) 09/28/19 11:31 MCH 31 pg (28-32) 09/28/19 11:31 MCHC 34 % (32-34) 09/28/19 11:31 RDW 17.0 % (13.2-15.2) H 09/28/19 11:31 Plt Count 168 K/mm3 (140-440) 09/28/19 19:13 Lymph % (Auto) 2.9 % (13.4-35.0) L 09/28/19 11:31 [place] % (Auto) 7.3 % (0.0-7.3) 09/28/19 11:31 Eos % (Auto) 0.0 % (0.0-4.3) 09/28/19 11:31 Baso % (Auto) 0.1 % (0.0-1.8) 09/28/19 11:31 Lymph # 0.6 K/mm3 (1.2-5.4) L 09/28/19 11:31 [place] # 1.4 K/mm3 (0.0-0.8) H 09/28/19 11:31 Eos # 0.0 K/mm3 (0.0-0.4) 09/28/19 11:31 Baso # 0.0 K/mm3 (0.0-0.1) 09/28/19 11:31 Seg Neutrophils % 89.7 % (40.0-70.0) H 09/28/19 11:31 Seg Neutrophils # 17.5 K/mm3 (1.8-7.7) H 09/28/19 11:31 PT 15.9 Sec. (12.2-14.9) H 09/28/19 19:13 INR 1.29 (0.87-1.13) H 09/28/19 19:13 APTT TNR 09/28/19 19:13 Heparin Anti-Xa Level 0.63 U.I./ml (0.3-0.7) 09/29/19 05:31 Sodium 136 mmol/L (137-145) L 09/29/19 05:31 Potassium 3.2 mmol/L (3.6-5.0) L 09/29/19 05:31 Chloride 97.2 mmol/L (98-107) L 09/29/19 05:31 Carbon Dioxide 21 mmol/L (22-30) L 09/29/19 05:31 Anion Gap 21 mmol/L 09/29/19 05:31 BUN 20 mg/dL (9-20) 09/29/19 05:31 Creatinine 2.0 mg/dL (0.8-1.5) H 09/29/19 05:31 Estimated GFR 33 ml/min 09/29/19 05:31 BUN/Creatinine Ratio 10 % 09/29/19 05:31 Glucose 129 mg/dL (75-100) H 09/29/19 05:31 POC Glucose 187 (70-105) H 09/28/19 11:21 Calcium 8.5 mg/dL (8.4-10.2) 09/29/19 05:31 Magnesium 2.40 mg/dL (1.7-2.3) H 09/29/19 05:31 Total Bilirubin 1.10 mg/dL (0.1-1.2) 09/29/19 05:31 AST 147 units/L (5-40) H 09/29/19 05:31 ALT 58 units/L (7-56) H 09/29/19 05:31 Alkaline Phosphatase 170 units/L (35-129) H 09/29/19 05:31 Troponin T 0.614 ng/mL (0.00-0.029) H* 09/29/19 05:31 NT-Pro-B Natriuret Pep 3825 pg/mL (0-900) H 09/28/19 13:19 Total Protein 6.2 g/dL (6.3-8.2) L 09/29/19 05:31 Albumin 3.6 g/dL (3.9-5) L 09/29/19 05:31 Albumin/Globulin Ratio 1.4 % 09/29/19 05:31 Triglycerides 249 mg/dL (2-149) H 09/28/19 11:31 Cholesterol 123 mg/dL (50-199) 09/28/19 11:31 LDL Cholesterol Direct 46 mg/dL (50-130) L 09/28/19 11:31 HDL Cholesterol 44 mg/dL (40-59) 09/28/19 11:31 Cholesterol/HDL Ratio 2.79 % 09/28/19 11:31 TSH 2.910 mlU/mL (0.270-4.200) 09/28/19 13:19 Urine Color Yellow (Yellow) 09/28/19 12:51 Urine Turbidity Slightly-cloudy (Clear) 09/28/19 12:51 Urine pH 5.0 (5.0-7.0) 09/28/19 12:51 Ur Specific [place] 1.018 (1.003-1.030) 09/28/19 12:51 Urine Protein 100 mg/dl mg/dL (Negative) 09/28/19 12:51 Urine Glucose (UA) Neg mg/dL (Negative) 09/28/19 12:51 Urine Ketones Tr mg/dL (Negative) 09/28/19 12:51 Urine Blood Sm (Negative) 09/28/19 12:51 Urine Nitrite Neg (Negative) 09/28/19 12:51 Urine Bilirubin Neg (Negative) 09/28/19 12:51 Urine Urobilinogen < 2.0 mg/dL (<2.0) 09/28/19 12:51 Ur Leukocyte Esterase Neg (Negative) 09/28/19 12:51 Urine WBC (Auto) 3.0 /HPF (0.0-6.0) 09/28/19 12:51 Urine RBC (Auto) 2.0 /HPF (0.0-6.0) 09/28/19 12:51 U Epithel Cells (Auto) < 1.0 /HPF (0-13.0) 09/28/19 12:51 Urine Mucus Few /HPF 09/28/19 12:51 - Imaging and Cardiology EKG: image reviewed Active Medications - Current Medications Current Medications: Generic Name Dose Route Start Last Admin Trade Name Freq PRN Reason Stop Dose Admin Acetaminophen 650 mg 09/28/19 22:48 Tylenol PO Q4H PRN Pain MILD(1-3)/Fever >100.5/AGOSTO Apixaban 5 mg 09/29/19 10:00 09/29/19 09:58 Eliquis PO 5 mg Q12HR NINA Administration Protocol Atorvastatin Calcium 80 mg 09/28/19 22:00 09/28/19 22:39 Lipitor PO 80 mg QHS NINA Administration Bismuth Subsalicylate 262 mg 09/28/19 20:32 Pepto Bismol PO Q6H PRN Indigestion Duloxetine HCl 60 mg 09/28/19 23:00 09/29/19 09:58 Cymbalta PO 60 mg BID NINA Administration Ezetimibe 5 mg 09/29/19 12:00 09/29/19 12:23 Zetia PO 5 mg QDAY@1200 NINA Administration Hydralazine HCl 50 mg 09/29/19 09:00 09/29/19 13:27 Apresoline PO Not Given Q8HR NINA Isosorbide Mononitrate 30 mg 09/29/19 10:00 09/29/19 09:57 Imdur PO 30 mg QDAY NINA Administration Lorazepam 2 mg 09/28/19 22:27 09/29/19 00:07 Ativan IV 2 mg Q1HR PRN Administration CIWA-Ar 8-15 Lorazepam 4 mg 09/28/19 22:27 Ativan IV Q1HR PRN CIWA-Ar 16-25 Lorazepam 4 mg 09/28/19 22:27 Ativan IV Q15MIN PRN CIWA-Ar >25 Melatonin 5 mg 09/28/19 22:15 09/28/19 22:39 Melatonin PO 5 mg QHS PRN Administration Sleep Metoprolol Succinate 100 mg 09/29/19 10:00 09/29/19 10:35 Metoprolol Xl PO 100 mg QDAY NINA Administration Niacin 500 mg 09/28/19 23:00 09/29/19 09:57 Niaspan Er PO 500 mg BID NINA Administration Ondansetron HCl 4 mg 09/28/19 22:48 Zofran IV Q8H PRN Nausea And Vomiting Sodium Chloride 10 ml 09/29/19 10:00 09/29/19 09:59 Sodium Chloride Flush Syringe 10 Ml IV 10 ml BID NINA Administration Sodium Chloride 10 ml 09/28/19 22:48 Sodium Chloride Flush Syringe 10 Ml IV PRN PRN LINE FLUSH
[2019-09-29] MEDS: MELATONIN 5 MG TAB PO PRN (22:00)
[2019-09-30] MEDS: hydrALAZINE 25 MG TAB PO SCH ×2 (00:02→06:25)
[2019-09-30 08:22] LABS: Hematocrit 30.1 % (35.5-45.6); Hemoglobin 10.3 gm/dl (11.8-15.2)
--- NOTE | 2019-09-30 09:43 | Progress Note ---
Assessment and Plan Patient's blood pressure was too low for hydralazine. Patient received IV fluids and patient's renal insufficiency improved. Creatinine 1.3. We'll continue Toprol-XL 100. Add Imdur 30 mg. atrial fibrillation continue oral anticoagulation elquis. pt nstemi type 2, add imdur and cont low dose asa . pt states will e off liquor. Patient's H preparation may be attributed to drinking and dehydration also an increased LFTs secondary to all cortex. As patient has stopped drinking all, continue statin medication. Discussed these results with patient and patient's son in detail may be discharged from a cardiovascular point of view - Patient Problems (1) Acute on chronic renal insufficiency Current Visit: Yes Status: Acute (2) Acute systolic ACC/AHA stage C congestive heart failure Current Visit: Yes Status: Resolved (3) Atrial fibrillation with RVR Current Visit: No Status: Acute (4) Hypokalemia Current Visit: No Status: Acute (5) NSTEMI (non-ST elevated myocardial infarction) Current Visit: No Status: Acute (6) CAD (coronary artery disease) Current Visit: No Status: Chronic Qualifiers: Coronary Disease-Associated Artery/Lesion type: [place] artery [place] vs. transplanted heart: [place] heart Associated angina: without angina Qualified Code(s): I25.10 - Atherosclerotic heart disease of [place] coronary artery without angina pectoris (7) EtOH dependence Current Visit: No Status: Chronic (8) HTN (hypertension) Current Visit: No Status: Chronic Qualifiers: Hypertension type: essential hypertension Qualified Code(s): I10 - Essential (primary) hypertension (9) History of right-sided carotid endarterectomy Current Visit: No Status: Chronic (10) Hx of CABG Current Visit: No Status: Chronic (11) Hyperlipemia, mixed Current Visit: Yes Status: Chronic Subjective Date of service: 09/30/19 Principal diagnosis: afib Interval history: No palpitations no shortness of breath or chest pain Objective Vital Signs Temp Pulse Resp BP Pulse Ox 09/30/19 08:15 98.0 F 84 18 95 09/30/19 04:23 98.0 F 85 18 109/56 94 09/29/19 23:39 98.9 F 87 18 135/71 93 09/29/19 22:00 83 18 09/29/19 19:17 98.3 F 86 20 112/77 94 09/29/19 15:46 98.3 F 87 20 112/69 95 09/29/19 11:17 98.0 F 88 18 119/72 96 09/29/19 11:00 95 09/29/19 10:00 93 H 09/29/19 09:57 91 H 96/58 - Physical Examination General: No Apparent Distress HEENT: Positive: PERRL, Normocephaly, Mucus Membranes Moist Neck: Positive: neck supple, trachea midline Cardiac: Positive: Reg Rate and Rhythm Lungs: Positive: clear to auscultation Neuro: Positive: Grossly Intact Abdomen: Negative: Tender Skin: Negative: Rash Musculoskeletal: No Pain Extremities: Absent: edema - Labs and Meds CBC 09/30/19 Range/Units 06:29 Hgb 10.3 L (11.8-15.2) gm/dl Hct 30.1 L (35.5-45.6) % Plt Count 121 L (140-440) K/mm3 Comprehensive Metabolic Panel 09/30/19 Range/Units 06:29 Sodium 133 L (137-145) mmol/L Potassium 3.2 L (3.6-5.0) mmol/L Chloride 97.0 L (98-107) mmol/L Carbon Dioxide 20 L (22-30) mmol/L BUN 13 (9-20) mg/dL Creatinine 1.3 (0.8-1.5) mg/dL Glucose 102 H (75-100) mg/dL Calcium 8.0 L (8.4-10.2) mg/dL - Imaging and Cardiology EKG: image reviewed Echo: report reviewed (10/2018 showed EF 50%, impaired relaxation, trace AR, trace MR. ), other (09/28/2019 ef 40-45%) - Telemetry EKG Rhythm: Sinus Rhythm (for 48 hours)
[2019-09-30 09:47] VITALS: BP 115/71
[2019-09-30] MEDS: APIXABAN 5 MG TAB PO SCH (09:49)
[2019-09-30] MEDS: DULoxetine 30 MG CAP PO SCH (09:49)
[2019-09-30] MEDS: NIACIN ER 500 MG TAB PO SCH (09:50)
[2019-09-30] MEDS ORDERED: ASPIRIN 81 MG TAB CHEW PO SCH (10:00)
--- NOTE | 2019-09-30 10:46 | Discharge Summary ---
Providers - Providers Date of Admission: 09/28/19 12:53 Date of discharge: 09/30/19 Attending physician: JULIO C RAMÍREZ 09/28/19 12:54 Consult to Physician [CONS] Stat Comment: Consulting Provider: DEXTER ZHANG Physician Instructions: Reason For Exam: AFIB RVR;ELEVATED TROP Primary care physician: IVON YEPEZ Hospitalization Condition: Stable Pertinent studies: Echocardiogram mildly decreased systolic function. Ejection fraction 45%. Hospital course: 74-year-old history of atrial fibrillation, hypertension, coronary artery disease status post PCI, CABG 1 year ago presents with atrial fibrillation rapid ventricular rate. Patient's rate was controlled with Toprol-XL only. Hospital course was complicated by acute kidney injury which was secondary to prerenal azotemia. Patient was given IV hydration and angiotensin receptor luba was discontinued. Patient's renal function returned to baseline. Patient was stable for discharge. Patient was evaluated by cardiology recommended follow-up 5 days. Disposition: - TO HOME OR SELFCARE - Discharge Diagnoses (1) EtOH dependence Status: Acute Comment: Patient did not have any DTs while here. Long discussion about the association of alcohol and atrial fibrillation. Patient has stopped before is okay. Discussed with son at bedside. (2) Acute systolic ACC/AHA stage C congestive heart failure Status: Resolved Comment: Very well compensated present time. (3) Hyperlipemia, mixed Status: Chronic Comment: Continue statin. Goal LDL less than 70. (4) Atrial fibrillation with RVR Status: Acute Comment: Metoprolol XL. Patient's blood pressure did not tolerate additional hydralazine. Imdur has also been added to patient's regime (5) HLD (hyperlipidemia) Status: Acute (6) NSTEMI (non-ST elevated myocardial infarction) Status: Acute Comment: Imdur has been added to Toprol xl patient's blood pressure has gotten control. (7) Acute on chronic renal insufficiency Status: Acute (8) HTN (hypertension) Status: Chronic Qualifiers: Hypertension type: essential hypertension Qualified Code(s): I10 - Essential (primary) hypertension Comment: unable to tolerate hydralize because of hypotension Core Measure Documentation - Palliative Care Palliative Care/ Comfort Measures: Not Applicable - Core Measures Any of the following diagnoses?: none Exam - Constitutional Vitals: Temp Pulse Resp BP Pulse Ox 98.0 F 84 18 115/71 95 09/30/19 09:45 11/17/19 09:49 09/30/19 09:45 09/30/19 09:49 09/30/19 09:45 General appearance: Present: no acute distress, well-nourished - EENT Eyes: Present: PERRL ENT: hearing intact, clear oral mucosa - Neck Neck: Present: supple, normal ROM - Respiratory Respiratory effort: normal Respiratory: bilateral: CTA - Cardiovascular Heart Sounds: Present: S1 & S2. Absent: rub, click - Extremities Extremities: pulses symmetrical, No edema Peripheral Pulses: within normal limits - Abdominal General gastrointestinal: Present: soft, non-tender, non-distended, normal bowel sounds Male genitourinary: Present: normal - Integumentary Integumentary: Present: clear, warm, dry - Musculoskeletal Musculoskeletal: gait normal, strength equal bilaterally - Psychiatric Psychiatric: appropriate mood/affect, intact judgment & insight - Neurologic Neurologic: CNII-XII intact, moves all extremities Plan Activity: no restrictions Weight Bearing Status: Full Weight Bearing Diet: low carbohydrate, other (no alchlol) Special Instructions: record daily BP diary Follow up with: DONNA MILLIGAN MD [Staff Physician] - 3-5 Days Prescriptions: Aspirin [Aspirin BABY CHEW TAB] 81 mg PO QDAY #30 tab.chew Apixaban [Eliquis] 5 mg PO Q12HR #60 tablet ISOSORBIDE MONOnitrate [Imdur ER] 30 mg PO QDAY #30 tablet Metoprolol Xl [Metoprolol SUCCINATE ER TAB] 100 mg PO QDAY #30 tablet
== END 2019-09-30 11:38 | disposition home or self-care (01) | DRG 280 ==
LOC: ED 10:24 → 4A 12:53
PROVIDERS: ADMIT Internal Medicine; ATTEND Internal Medicine
DX: I21.4 Non-ST elevation (NSTEMI) myocardial infarction (principal); I50.21 Acute systolic (congestive) heart failure; N17.9 Acute kidney failure, unspecified; I13.0 Hypertensive heart and chronic kidney disease with heart failure and stage 1 through stage 4 chronic kidney disease, or unspecified chronic kidney disease; I48.91 Unspecified atrial fibrillation; I25.10 Atherosclerotic heart disease of native coronary artery without angina pectoris; F10.20 Alcohol dependence, uncomplicated; E78.2 Mixed hyperlipidemia; N18.9 Chronic kidney disease, unspecified; D72.829 Elevated white blood cell count, unspecified; R74.0 Nonspecific elevation of levels of transaminase and lactic acid dehydrogenase [LDH]; E87.6 Hypokalemia; Z95.5 Presence of coronary angioplasty implant and graft; Z95.1 Presence of aortocoronary bypass graft; Z79.899 Other long term (current) drug therapy
CPT/HCPCS: 36415; 71045; 80048; 80053; 80061; 81001; 82962; 83735; 83880; 84443; 84484; 85014; 85018; 85025; 85049; 85520; 85610; 85730; 93005; 93010; 93306; G0378; A9270-GY; J0282; J1644; J2060; J2405; J3475; J7030; J7060; Q0162